=== PATIENT | female | born 1965 | race Caucasian/White ===

== ENCOUNTER 2019-07-12 21:55 | Emergency (ER) | payer MEDICARE, SELFPAY ==
--- NOTE | ~2019-07-12 | XR_ITS ---
XR knee RT 2V 07/12/2019 22:24 INDICATION: Right knee pain PROCEDURE: 2 views right knee COMPARISON: No prior studies for comparison. FINDINGS: Fracture, dislocation or subluxation is not identified. No significant joint effusion. The soft tissues appear within normal limits. No foreign bodies are identified. Small sclerotic lesion d istal femoral metaphysis, likely bone island. IMPRESSION: 1: NO ACUTE BONE OR JOINT ABNORMALITY IDENTIFIED. Reviewed, dictated and finalized at location A.
--- NOTE | ~2019-07-12 | XR_ITS ---
XR hip RT 2V w AP pelvis 07/12/2019 22:24 INDICATION: Leg pain PROCEDURE: 3 views right hip including AP pelvis COMPARISON: No prior studies for comparison. FINDINGS: Fracture, dislocation or subluxation is not identified. The soft tissues appear within norm al limits. No foreign bodies are identified. IMPRESSION: 1: NO ACUTE BONE OR JOINT ABNORMALITY IDENTIFIED. Reviewed, dictated and finalized at location A.
[2019-07-12 21:59] VITALS: BP 151/85; PULSE 90; RESP 16; TEMP 36.8; O2SAT 97
--- NOTE | 2019-07-12 22:03 | ED.LOWEXIN ---
HPI - Extremity Injury (Lower) General Chief Complaint: Extremity Injury, Lower Stated Complaint: ambulance Source: patient and EMS Mode of arrival: EMS Limitations: no limitations History of Present Illness HPI Narrative: This is a 53-year-old female that presents via EMS to the emergency department after she fell when she tripped outdoors and falling directly on her on her knee causing pain swelling and radiation into her right hip area occurred earlier today. There is no fever chills no dizziness no nausea vomiting no headaches no chest pain or shortness of breath. Patient has decreased range of motion with pain with palpation and movement of her right knee and hip area there is some mild swelling and is having difficulty with extending and flexing her right knee. Patient has a history of hyperlipidemia and depression. MD complaint: knee injury and leg injury Onset (ago): hour(s) Injury: Right: hip and knee Type of Injury: blunt Place: home and street/outdoors Severity: moderate Severity scale (1-10): 6 Relieving factors: nothing Exacerbating factors: weight bearing and movement Context: fall and direct blow Associated symptoms: swelling and unable to bear weight Other symptoms: none Related Data Home Medications Medication Instructions Recorded Confirmed aspirin 81 mg PO DAILY 01/07/19 07/12/19 atorvastatin 20 mg PO HS 01/07/19 07/12/19 ergocalciferol (vitamin D2) 50,000 unit PO WEEKLY 01/07/19 07/12/19 [Vitamin D2] omega 7-[id number]-jwh-fish oil [Fish Oil] 1 cap PO DAILY 01/07/19 07/12/19 sertraline 100 mg PO DAILY 01/07/19 07/12/19 sumatriptan succinate [Imitrex] 50 mg PO ONCE 01/07/19 07/12/19 Allergies Allergy/AdvReac Type Severity Reaction Status Date / Time No Known Allergies Allergy Verified 01/28/19 17:15 Review of Systems Review of Systems: All systems reviewed & are unremarkable except as noted in HPI and below Constitutional: Constitutional: Reports as per HPI PMFSH Past Medical History Medical History Hyperlipidemia Migraine headache Social History Social History Social History: nonsmoker Exam Const: General: no acute distress and alert Orientation/consciousness: patient oriented x3 HENMT: Head: normal to inspection Eyes: Conjunctivae: conjunctivae normal Pupils: Equal, round and reactive pupils present Neck: Neck: normal visual inspection, no lymphadenopathy and no meningeal signs Chest: Chest palpation & inspection: normal inspection of the chest Resp: Effort & Inspection: normal respiratory effort Auscultation: clear to auscultation bilaterally Cardio: Rate: regular rate Rhythm: regular rhythm GI: GI Palp: Yes Soft to palpation Percussion: Yes normal to percussion : General: Yes no CVA tenderness Back/Spine/Pelvis: Back: no CVA tenderness Skin: General skin exam: normal color Rashes: no rashes Extrem: Other: Point tenderness anterior knee on the right with some decreased range of motion with some flexing and extending the right knee radiation into her right hip area with swelling of her right knee Psych: Mental Status: mental status grossly normal Thought content: Yes Normal thought content present Course Course Emergency Course: reassessment of patient a pain level down to a 7/10, patient initially given IM Toradol, and subsequently a 2nd injection of IM morphine 4 mg. Spoke to patient about negative results for fractures on x-rays of the hip and the knee. Critical Care Time Critical Care Time Critical Care Time: No Discharge Plan Discharge Clinical Impression: Knee strain Qualifiers: Encounter type: initial encounter Laterality: right Qualified Code(s): S86.911A - Strain of unspecified muscle(s) and tendon(s) at lower leg level, right leg, initial encounter Patient Disposition: Home, Self-Care Condition: Stable Instructions:
[2019-07-12] MEDS: KETOROLAC (*BKC) 60 MG/2 ML VIAL IM (22:06)
[2019-07-12 22:52] VITALS: BP 138/76; PULSE 75; RESP 20; O2SAT 97
[2019-07-12] MEDS: MORPHINE SULFATE 4 MG/ML INJ IM (23:05)
[2019-07-12 23:41] VITALS: BP 138/75; PULSE 75; RESP 20; TEMP 37.1; O2SAT 97
--- NOTE | 2019-07-12 23:52 | PC.NURSE ---
2348 pt assisted to car via wheelchair. instructions to wear stable shoes and no flip flops. pt attempting to hop around on one foot. unsafe.
== END 2019-07-12 23:42 | disposition home or self-care (01) ==
PROVIDERS: Emergency Provider Emergency Medicine; PCP Family Medicine
DX: S86.911A Strain of unspecified muscle(s) and tendon(s) at lower leg level, right leg, initial encounter (principal); W01.0XXA Fall on same level from slipping, tripping and stumbling without subsequent striking against object, initial encounter; E78.5 Hyperlipidemia, unspecified
CPT/HCPCS: 73502; 73560; 96372; 99283; 99284; J1885; J2270

== ENCOUNTER 2019-11-12 19:52 | Emergency (ER) | payer MEDICARE, SELFPAY ==
--- NOTE | ~2019-11-12 | CT_ITS ---
EXAMINATION: CT abdomen pelvis wo con DATE: 11/12/2019 21:18 INDICATION: Colicky left flank pain. TECHNIQUE: Computed tomography (CT) of the abdomen and pelvis was performed without intravenous contr ast. Automated exposure control and iterative reconstruction technique were employed. The dose-length product was 1504.77 mGy-cm. COMPARISON: None FINDINGS: Visualized lower lungs are clear. Heart size is normal. No pericardial or pleural effusion. Diffuse h epatic steatosis with focal sparing along the gallbladder fossa. Gallbladder, spleen, pancreas and bi lateral adrenal glands are normal. Bilateral nephrolithiasis with 3 stones measuring up to 6 mm in th e right kidney and 3 stones measuring up to 4 mm the left kidney. 5 x 2 mm stone at the left ureterov esicular junction with mild left hydronephrosis. Bowels including the appendix are normal. Decompress ed bladder, anteverted uterus and right adnexa are normal. 2.9 cm left adnexal cyst. Fat-containing u mbilical hernia. No free intraperitoneal gas or fluid. No pathologically enlarged abdominal or pelvic lymphadenopathy. Mild degenerative skeletal changes in the thoracic and lumbar spine, bilateral sacr oiliac and hip joints. IMPRESSION: 1. Bilateral nephrolithiasis with 5 x 2 mm stone at the left ureterovesicular junction with mild left hydronephrosis. 2. Diffuse hepatic steatosis. Reviewed, dictated and finalized at location A. IMPRESSION: 1. Bilateral nephrolithiasis with 5 x 2 mm stone at the left ureterovesicular j unction with mild left hydronephrosis. 2. Diffuse hepatic steatosis.
[2019-11-12 20:10] VITALS: BP 149/56; PULSE 71; RESP 22; TEMP 36.7; O2SAT 96
[2019-11-12 20:49] LABS: Basophils Absolute Auto 0.03 K/mm3 (0.00-0.10); Basophils Percent Auto 0.4 % (0.0-1.0); Eosinophils Absolute Auto 0.15 K/mm3 (0.02-0.50); Hematocrit 44.1 % (35.0-49.0); Hemoglobin 14.9 g/dL (12.0-15.0); Immature Granulocyte Absolute 0.03 K/mm3 (0.00-0.00); Immature Granulocyte Percent A 0.4 % (0.0-0.0); Lymphocytes Absolute Auto 1.24 K/mm3 (1.10-4.50); Lymphocytes Percent Auto 16.2 % (18.0-42.0); Mean Corpuscular HGB Conc 33.8 g/dL (32.0-36.0); Mean Corpuscular Hemoglobin 33.9 pg (27.0-31.0); Mean Corpuscular Volume 100.5 fL (78.0-102.0); Mean Platelet Volume 8.6 fl (9.2-11.8); Monocytes Absolute Auto 0.49 K/mm3 (0.10-0.90); Monocytes Percent Auto 6.4 % (2.0-11.0); Neutrophils Absolute Auto 5.7 K/mm3 (1.7-7.2); Neutrophils Percent Auto 74.6 % (50.0-70.0); Platelet Count Result 286 K/mm3 (150-420); Red Blood Count 4.39 M/mm3 (4.20-5.40); Red Cell Distribution Width 11.9 % (11.6-14.4); White Blood Count 7.7 K/mm3 (4.8-10.8)
[2019-11-12] MEDS: KETOROLAC 30 MG/ML VIAL (*BKC) IV PUSH (20:50)
[2019-11-12] MEDS: MORPHINE SULFATE (*CRX) 4 MG/ML INJ IV PUSH (20:53)
[2019-11-12 21:00] VITALS: BP 146/108; PULSE 71; RESP 14; O2SAT 99
[2019-11-12 21:02] LABS: Alanine Aminotransferase 38 U/L (14-59); Alkaline Phosphatase 118 U/L (46-116); Anion Gap 10 mmol/L (8-16); Aspartate Amino Transferase 18 U/L (15-37); Bilirubin,Total 0.4 mg/dL (0.00-1.00); Blood Urea Nitrogen 15 mg/dL (7-18); Calcium 9.1 mg/dL (8.5-10.1); Carbon Dioxide 28 mmol/L (21-32); Chloride 103 mmol/L (98-108); Estimated CRCL calculation 68 ml/min; Estimated Glomerular Filt Rate 49; Glucose 125 mg/dL (70-99); Lipase 128 U/L (73-393); Osmolality Calculated 293 mOsm/kg (285-295); Potassium 4.1 mmol/L (3.5-5.1); Sodium 141 mmol/L (136-145); Total Protein 8.4 g/dL (6.4-8.2)
[2019-11-12] MEDS: ONDANSETRON INJ 4 MG/2 ML VIAL IV PUSH (21:04)
--- NOTE | 2019-11-12 21:07 | ED.GENADULT ---
HPI - General Adult General Chief complaint: Back Pain/Injury Stated complaint: side pain/back pain Source: patient Mode of arrival: ambulatory Limitations: no limitations History of Present Illness HPI narrative: Love is a 54F with a PMH of anxiety, and headaches that presented to the ED with left flank pain. She started having dysuria and burning but this afternoon she started having severe colicky pain in her left flank. Pain is constant and associated with nausea and dry heaving. She has no chest pain, SOB, lightheadedness, or diarrhea. Ibuprofen did not provide adequate relief. Related Data Home Medications Medication Instructions Recorded Confirmed aspirin 81 mg PO DAILY 01/07/19 11/12/19 atorvastatin 20 mg PO HS 01/07/19 11/12/19 ergocalciferol (vitamin D2) 50,000 unit PO WEEKLY 01/07/19 11/12/19 [Vitamin D2] omega 7-wyl-mem-fish oil [Fish Oil] 1 cap PO DAILY 01/07/19 11/12/19 sertraline 100 mg PO DAILY 01/07/19 11/12/19 sumatriptan succinate [Imitrex] 50 mg PO ONCE 01/07/19 11/12/19 Allergies Allergy/AdvReac Type Severity Reaction Status Date / Time No Known Allergies Allergy Verified 01/28/19 17:15 Review of Systems Constitutional: Constitutional: Denies chills and Denies fever(s) Eyes: Eyes: Reports no additional eye complaints ENT: Reports system reviewed and no additional complaints, except as documented Cardiovascular: Cardiovascular: Reports no additional cardiovascular complaints Respiratory: Respiratory: Reports no additional respiratory complaints Gastrointestinal: Gastrointestinal: Reports nausea and Reports vomiting Genitourinary: Genitourinary: Reports as per HPI Musculoskeletal: Musculoskeletal: Reports no additional musculoskeletal complaints Integumentary/Breasts: Skin/Breast: Reports system reviewed and no additional complaints, except as docu Neurologic: Reports system reviewed and no additional complaints, except as documented Psychiatric: Psychiatric: Reports no additional psychiatric complaints Endocrine: Endocrine: Reports no additional endocrine complaints Hematologic/Lymphatic: Hematologic/Lymphatic: Reports no additional hematologic/lymphatic complaints Allergic/Immunologic: Allergic/Immunologic: Reports no additional allergic/immunologic complaints PMFSH Past Medical History Medical History Hyperlipidemia Migraine headache Social History Social History Social History: nonsmoker Exam Const: General: alert Orientation/consciousness: patient oriented x3 Other: in mild to moderate distress rocking back and fourth holding her side. HENMT: Head: normal to inspection Eyes: Conjunctivae: conjunctivae normal Pupils: Equal, round and reactive pupils present Neck: Neck: normal visual inspection Resp: Effort & Inspection: normal respiratory effort Auscultation: clear to auscultation bilaterally Cardio: Rate: regular rate Rhythm: regular rhythm GI: GI Palp: Yes Soft to palpation and No Tenderness to palpation present (GI) : Other: CVA tenderness on the left and suprapubic tenderness Skin: General skin exam: normal color Rashes: no rashes Neuro: General: patient oriented x3 and moves all extremities Extrem: General: normal to inspection Psych: Mental Status: mental status grossly normal Course Course Emergency Course: Love was evaluated. Ordered labs, a UA and CT abd/pelvis w/o contrast. She was also given toradol and morphine for the pain. Zofran was given for nausea. EXAMINATION: CT abdomen pelvis wo con DATE: 11/12/2019 21:18 INDICATION: Colicky left flank pain. TECHNIQUE: Computed tomography (CT) of the abdomen and pelvis was performed without intravenous contrast. Automated exposure control and iterative reconstruction technique were employed. The dose-length product was 1504.77 mGy-cm. COMPARISON: None FINDINGS: Visuali
[2019-11-12 21:45] VITALS: BP 158/94; PULSE 79; RESP 15; O2SAT 100
[2019-11-12 21:50] LABS: Add Urine Microscopic? YES; Appearance Urine Clear (Clear); Bilirubin Urine 1+ (Negative); Blood Urine 1+ (Negative); Color Urine Yellow (Yellow); Glucose Urine UA Negative (Negative); Ketones Urine Trace (Negative); Leukocyte Esterase Ur Negative (Negative); Nitrate Urine Negative (Negative); Protein Urine Negative (Negative); Specific Grav Ur >= 1.030 (1.010-1.020); Urobilinogen Urine 0.2 mg/dL (0.2-1.0); pH Urine 5.5 (5.0-8.0)
[2019-11-12 21:58] LABS: RBC Urine 0-2 /hpf (0-2); WBC Urine 0-3 /hpf (0-3)
[2019-11-12 21:59] LABS: Bacteria Urine 1+ /hpf; Calcium Oxalate Crystals Urine Many /hpf; Squamous Epithelial Cell Urine Moderate /hpf (Few)
[2019-11-12 22:11] VITALS: BP 145/90; PULSE 70; RESP 14; O2SAT 98
== END 2019-11-12 22:15 | disposition home or self-care (01) ==
PROVIDERS: Emergency Provider Family Medicine; PCP Family Medicine
DX: N20.1 Calculus of ureter (principal); K75.81 Nonalcoholic steatohepatitis (NASH)
CPT/HCPCS: 36415; 74176; 80053; 81001; 83690; 85025; 96374; 96375; 99284; J1885; J2270; J2405

== ENCOUNTER 2019-11-27 02:03 | Emergency (ER) | payer MEDICARE, SELFPAY ==
--- NOTE | ~2019-11-27 | CT_ITS ---
EXAMINATION: CT abdomen pelvis wo con DATE: 11/27/2019 02:42 INDICATION: Right flank pain. TECHNIQUE: Computed tomography (CT) of the abdomen and pelvis was performed without intravenous contr ast. Automated exposure control and iterative reconstruction technique were employed. The dose-length product was 1479.03 mGy-cm. COMPARISON: CT abdomen and pelvis 11/12/2019 FINDINGS: The visualized portions of the lung bases demonstrate minimal atelectasis. No pleural effus ion. The heart size is normal. No pericardial effusion. There is diffuse hepatic steatosis. The gallb ladder, spleen, pancreas, and adrenal glands are normal. There is a 3 mm stone in right kidney. There is a 3 mm stone in distal right ureter. There is moderate hydronephrosis and hydroureter. There are 4 stones in left kidney measuring up to 2 mm. There is an umbilical hernia containing fat. There are no dilated loops of bowel. The appendix is normal. There are no pathologically enlarged lymph nodes. There is no free intraperitoneal fluid. There is mild thoracolumbar spondylosis. IMPRESSION: 1. 3 mm stone in distal right ureter with mild right hydronephrosis and hydroureter. 2. Small bilateral nonobstructing kidney stones. 3. Umbilical hernia containing fat. Reviewed, dictated and finalized at location A. IMPRESSION: 1. 3 mm stone in distal right ureter with mild right hydronephrosis and hydrour eter. 2. Small bilateral nonobstructing kidney stones. 3. Umbilical hernia containing fat.
[2019-11-27 02:10] VITALS: BP 137/76; PULSE 80; RESP 20; TEMP 36.7; O2SAT 98
--- NOTE | 2019-11-27 02:21 | ED.GENADULT ---
HPI - General Adult General Chief complaint: Abdominal Pain Stated complaint: pain Source: patient Mode of arrival: ambulatory Limitations: no limitations History of Present Illness HPI narrative: Love is a 54F with a PMH of anxiety, headaches, HLD, a mood disorder and nephrolithiasis that presented to clinic with right flank pain that began a couple hours ago. She was sleeping when she was awoken by waxing and waning colicky pain in her RLQ that shoots into her groin. She was diagnosed with kidney stones bilaterally a couple weeks ago when she passed one. The pain is similar but on the other side. However, it is ten times worse. . No fevers, chills, CP, SOB, or syncope. She also had gross hematuria starting tonight. Related Data Home Medications Medication Instructions Recorded Confirmed atorvastatin 40 mg PO HS 01/07/19 11/27/19 sertraline 100 mg PO DAILY 01/07/19 11/27/19 sumatriptan succinate [Imitrex] 50 mg PO ONCE 01/07/19 11/27/19 Allergies Allergy/AdvReac Type Severity Reaction Status Date / Time No Known Allergies Allergy Verified 01/28/19 17:15 Review of Systems Constitutional: Constitutional: Reports no additional constitutional complaints Eyes: Eyes: Reports no additional eye complaints ENT: Reports system reviewed and no additional complaints, except as documented Cardiovascular: Cardiovascular: Reports no additional cardiovascular complaints Respiratory: Respiratory: Reports no additional respiratory complaints Gastrointestinal: Gastrointestinal: Denies diarrhea, Reports nausea and Denies vomiting Genitourinary: Genitourinary: Reports as per HPI Musculoskeletal: Musculoskeletal: Reports no additional musculoskeletal complaints Integumentary/Breasts: Skin/Breast: Reports system reviewed and no additional complaints, except as docu Neurologic: Reports system reviewed and no additional complaints, except as documented Psychiatric: Psychiatric: Reports no additional psychiatric complaints Endocrine: Endocrine: Reports no additional endocrine complaints Hematologic/Lymphatic: Hematologic/Lymphatic: Reports no additional hematologic/lymphatic complaints Allergic/Immunologic: Allergic/Immunologic: Reports no additional allergic/immunologic complaints [facility] Past Medical History Medical History (Updated 11/27/19 @ 03:07 by Jacob Causey DO) Hyperlipidemia Migraine headache Social History Social History Social History: nonsmoker Exam Const: General: alert; No confusion Orientation/consciousness: patient oriented x3 Limitations: No altered mental status Other: In mild to moderate distress breathing heavy lying on the bed. HENMT: Head: normal to inspection Other: atraumatic Eyes: Conjunctivae: conjunctivae normal Neck: Neck: normal visual inspection Chest: Chest palpation & inspection: normal inspection of the chest Resp: Effort & Inspection: normal respiratory effort Auscultation: clear to auscultation bilaterally Cardio: Rate: regular rate Rhythm: regular rhythm GI: GI Palp: Yes Soft to palpation Other: TTP in the RLQ. No guarding or rebound tenderness. Right sided CVA tenderness. : General: Yes CVA tenderness on the right Skin: General skin exam: normal color Neuro: General: patient oriented x3 and moves all extremities Extrem: General: normal to inspection Psych: Appearance: grossly normal Mental Status: mental status grossly normal Course Course Emergency Course: Love was evaluated. Ordered CT abd/pelvis, UA and labs as below. She was given toradol and morphine for pain as well as zofran for nausea. UA did show positive nitrites and bacteria but no leuk esterase or WBC. Given the nitrates and bacteria will treat with keflex. Urine culture ordered as well. CT read showed muliple bilateral non-obstructing renal calculi. These meaesure up to 3mm at the lower pole of the right kidney and
[2019-11-27] MEDS: KETOROLAC 30 MG/ML VIAL (*BKC) IV PUSH (02:25)
[2019-11-27] MEDS: MORPHINE SULFATE (*CRX) 4 MG/ML INJ IV PUSH (02:26)
[2019-11-27] MEDS: ONDANSETRON INJ 4 MG/2 ML VIAL IV PUSH (02:36)
[2019-11-27 02:47] LABS: Basophils Absolute Auto 0.04 K/mm3 (0.00-0.10); Basophils Percent Auto 0.4 % (0.0-1.0); Eosinophils Absolute Auto 0.16 K/mm3 (0.02-0.50); Eosinophils Percent Auto 1.8 % (1.0-6.0); Hematocrit 42.5 % (35.0-49.0); Hemoglobin 14.2 g/dL (12.0-15.0); Immature Granulocyte Absolute 0.04 K/mm3 (0.00-0.00); Immature Granulocyte Percent A 0.4 % (0.0-0.0); Lymphocytes Absolute Auto 1.97 K/mm3 (1.10-4.50); Mean Corpuscular HGB Conc 33.4 g/dL (32.0-36.0); Mean Corpuscular Hemoglobin 33.7 pg (27.0-31.0); Mean Platelet Volume 8.6 fl (9.2-11.8); Monocytes Absolute Auto 0.63 K/mm3 (0.10-0.90); Neutrophils Absolute Auto 6.1 K/mm3 (1.7-7.2); Neutrophils Percent Auto 68.4 % (50.0-70.0); Platelet Count Result 277 K/mm3 (150-420); Red Blood Count 4.21 M/mm3 (4.20-5.40); Red Cell Distribution Width 12.1 % (11.6-14.4)
[2019-11-27 02:49] LABS: Add Urine Microscopic? YES; Appearance Urine Cloudy (Clear); Bilirubin Urine 1+ (Negative); Blood Urine 3+ (Negative); Color Urine Amber (Yellow); Glucose Urine UA Negative (Negative); Ketones Urine Trace (Negative); Leukocyte Esterase Ur Negative (Negative); Nitrate Urine Positive (Negative); Protein Urine 2+ (Negative); Specific Grav Ur 1.025 (1.010-1.020); Urobilinogen Urine 0.2 mg/dL (0.2-1.0)
[2019-11-27 02:56] LABS: Bacteria Urine 2+ /hpf; RBC Urine >75 /hpf (0-2); Squamous Epithelial Cell Urine None seen /hpf (Few); WBC Urine 0-3 /hpf (0-3)
[2019-11-27 03:03] LABS: Alanine Aminotransferase 34 U/L (14-59); Albumin Level 3.5 g/dL (3.4-5.0); Alkaline Phosphatase 138 U/L (46-116); Anion Gap 8 mmol/L (8-16); Aspartate Amino Transferase 17 U/L (15-37); Bilirubin,Total 0.4 mg/dL (0.00-1.00); Blood Urea Nitrogen 23 mg/dL (7-18); Calcium 8.9 mg/dL (8.5-10.1); Carbon Dioxide 29 mmol/L (21-32); Chloride 104 mmol/L (98-108); Estimated CRCL calculation 93 ml/min; Estimated Glomerular Filt Rate > 60; Glucose 111 mg/dL (70-99); Lipase 150 U/L (73-393); Osmolality Calculated 296 mOsm/kg (285-295); Potassium 3.9 mmol/L (3.5-5.1); Sodium 141 mmol/L (136-145); Total Protein 7.7 g/dL (6.4-8.2)
[2019-11-27] MEDS: CEPHALEXIN 500 MG CAPSULE 1000 MG PO (03:10)
[2019-11-27 03:20] VITALS: BP 130/75; PULSE 85; RESP 20; TEMP 36.6; O2SAT 97
== END 2019-11-27 03:27 | disposition home or self-care (01) ==
PROVIDERS: Emergency Provider Family Medicine; PCP Family Medicine
DX: N20.1 Calculus of ureter (principal)
CPT/HCPCS: 36415; 74176; 80053; 81001; 83690; 85025; 87086; 96374; 96375; 99283; 99284; A9270; J1885; J2270; J2405

== ENCOUNTER 2020-10-27 17:52 | Emergency (ER) | payer MEDICARE, SELFPAY ==
[2020-10-27 19:24] VITALS: BP 125/75; PULSE 78; RESP 18; TEMP 37.1; O2SAT 96
--- NOTE | 2020-10-27 20:15 | ED.WOUNDLAC ---
HPI - Wound/Laceration General Chief Complaint: Wound/Laceration Stated Complaint: R upper leg pain, redness and warm to touch Time Seen by Provider: 10/27/20 18:55 Source: patient and RN notes reviewed Mode of arrival: ambulatory Limitations: no limitations History of Present Illness HPI narrative: right upper thigh insect bite redness, swelling and tenderness x 4 days. Onset (ago): day(s) (4) Extremity Location: Right: thigh Place: home Associated symptoms: pain Treatments prior to arrival: bandage Related Data Home Medications Medication Instructions Recorded Confirmed sertraline 100 mg PO DAILY 01/07/19 10/27/20 sumatriptan succinate [Imitrex] 50 mg PO ONCE 01/07/19 10/27/20 Allergies Allergy/AdvReac Type Severity Reaction Status Date / Time No Known Allergies Allergy Verified 01/28/19 17:15 Review of Systems Review of Systems: All systems reviewed & are unremarkable except as noted in HPI and below Musculoskeletal: Comments: upper right thigh redness and swollen insect bite. PMFSH Past Medical History Medical History Abscess Hyperlipidemia Migraine headache Social History Social History Social History: nonsmoker Exam Const: General: no acute distress Nutritional Appearance: obese Orientation/consciousness: patient oriented x3 HENMT: Head: normal to inspection Ears: external ears normal and TM's normal bilaterally General nose exam: Normal external nose present and Normal nares present Mouth: Yes moist mucous membranes Eyes: Conjunctivae: conjunctivae normal Pupils: Equal, round and reactive pupils present EOM: EOMs intact bilaterally Neck: Neck: normal visual inspection and no lymphadenopathy Chest: Chest palpation & inspection: normal inspection of the chest Resp: Effort & Inspection: normal respiratory effort Auscultation: clear to auscultation bilaterally Cardio: Rate: regular rate Rhythm: regular rhythm GI: GI Palp: Yes Soft to palpation (non-tender) Percussion: Yes normal to percussion Back/Spine/Pelvis: Back: no CVA tenderness Skin: General skin exam: normal color Other: mildly hyperemic 5cm x 4 cm flattened lesion with firm edge and soft middle. minimally tender Neuro: General: patient oriented x3, moves all extremities, no meningeal signs, no focal motor deficits and CN's II-XI intact bilaterally Extrem: Other: right anterior thigh abscess. Psych: Appearance: grossly normal and well kempt Mental Status: mental status grossly normal Affect: normal affect Attitude: cooperative Thought content: Yes Normal thought content present Course Course Emergency Course: Stable pt with less pain. for I and D and home with Rx. Reevaluation(s) Date: 10/27/20 Time: 20:19 Vital Signs Vital signs: Vital Signs Temperature 37.1 C 10/27/20 19:24 Pulse Rate 78 10/27/20 19:24 Respiratory Rate 18 10/27/20 19:24 Blood Pressure 125/75 10/27/20 19:24 Pulse Oximetry 96 10/27/20 19:24 Temperature 37.1 C 10/27/20 19:24 Pulse Rate 78 10/27/20 19:24 Respiratory Rate 18 10/27/20 19:24 Blood Pressure 125/75 10/27/20 19:24 Pulse Oximetry 96 10/27/20 19:24 Procedures Abscess I/D lower extremity: Date of Incision: 10/27/20 Time of Incision: 20:09 Side (if applicable): right Local Anesthetic: lidocaine 2% Amount of anesthesia used (mL): 4 Technique: incised with #11 blade Amount of fluid expressed (mL): 1 Irrigation: Yes Packing used?: iodoform I&D Results: Blood Complications: pain and bleeding Abcess I&D Additional Comments: Well tolerated. Critical Care Time Critical Care Time Critical Care Time: No Total Critical Care Time: 0 Discharge Plan Discharge Clinical Impression: Abscess Patient Disposition: Home, Self-Care Condition: Stable Instru
[2020-10-27] MEDS: KETOROLAC (*BKC) 60 MG/2 ML VIAL IM (20:16)
[2020-10-27] MEDS: cefTRIAXone 1 GM VIAL IM (20:18)
[2020-10-27] MEDS: LIDOCAINE HCL 1% LOCAL INJ 20 ML VIAL (20:19)
[2020-10-27] MEDS: LIDOCAINE HCL 2% PF INJ 5 ML VIAL 3 ML INFILTRATE (20:40)
[2020-10-27 21:06] VITALS: BP 130/74; PULSE 87; RESP 18; TEMP 36.4; O2SAT 97
== END 2020-10-27 21:07 | disposition home or self-care (01) ==
PROVIDERS: Emergency Provider Emergency Medicine; PCP Family Medicine
DX: L02.415 Cutaneous abscess of right lower limb (principal)
CPT/HCPCS: 10061; 87070; 87075; 87205; 96372; 99283; 99284; J0696; J1885

== ENCOUNTER 2020-10-30 22:01 | Emergency (ER) | payer MEDICARE, SELFPAY ==
--- NOTE | ~2020-10-30 | XR_ITS ---
EXAMINATION: XR knee LT 2V INDICATION: Left knee pain after fall TECHNIQUE: Two views of the left knee are obtained. COMPARISON: None available FINDINGS: There is no fracture. There is advanced joint space narrowing in the medial compartment. Th ere is soft tissue swelling of the knee. No joint effusion is identified. IMPRESSION: 1. No acute osseous abnormality. Reviewed, dictated and finalized at location A.
--- NOTE | ~2020-10-30 | XR_ITS ---
EXAMINATION: XR elbow LT 2V INDICATION: Left elbow pain TECHNIQUE: Two views of the left elbow were obtained. COMPARISON: None available FINDINGS: There is no fracture, dislocation, or subluxation. The bones, soft tissues, and joint space s are normal. IMPRESSION: 1. No acute osseous abnormality. Reviewed, dictated and finalized at location A.
[2020-10-30 22:08] VITALS: BP 109/65; PULSE 72; RESP 20; TEMP 36.6; O2SAT 95
--- NOTE | 2020-10-30 22:16 | ED.FALL ---
HPI - Fall General Chief Complaint: Fall Stated Complaint: fell in driveway Source: patient and EMS Mode of arrival: EMS Limitations: no limitations History of Present Illness HPI Narrative: this is a 55-year-old female that slipped and fell injuring her left elbow and left knee that occurred earlier today the patient was brought in by EMS has a history of depression, otherwise no head injury no loss of consciousness no other acute injuries. complaint: fall Onset (ago): hour(s) Fall from: standing Fall witnessed: yes, by family Place fall occurred: home Loss of consciousness: none Prolonged down time: no Symptoms prior to fall: none Context: tripped/slipped Related Data Home Medications Medication Instructions Recorded Confirmed sertraline 100 mg PO DAILY 01/07/19 10/27/20 sumatriptan succinate [Imitrex] 50 mg PO ONCE 01/07/19 10/27/20 Allergies Allergy/AdvReac Type Severity Reaction Status Date / Time No Known Allergies Allergy Verified 10/30/20 22:13 Review of Systems Review of Systems: All systems reviewed & are unremarkable except as noted in HPI and below PMFSH Past Medical History Medical History Abscess Hyperlipidemia Migraine headache Social History Social History Social History: nonsmoker Exam Const: General: no acute distress Orientation/consciousness: patient oriented x3 HENMT: Head: normal to inspection Eyes: Conjunctivae: conjunctivae normal Pupils: Equal, round and reactive pupils present Neck: Neck: normal visual inspection, no lymphadenopathy and no meningeal signs Chest: Chest palpation & inspection: normal inspection of the chest Resp: Effort & Inspection: normal respiratory effort Auscultation: clear to auscultation bilaterally Cardio: Rate: regular rate Rhythm: regular rhythm GI: Auscultation: normal bowel sounds : General: Yes no CVA tenderness Back/Spine/Pelvis: Back: no CVA tenderness Skin: Other: Abrasion to anterior left knee and elbow Neuro: General: patient oriented x3 Extrem: Other: pain of sedated with movement to left elbow and left knee and with palpation Psych: Mental Status: mental status grossly normal Affect: normal affect Course Course Emergency Course: x-rays reviewed with patient Vital Signs Vital signs: Vital Signs Temperature 36.6 C 10/30/20 22:08 Pulse Rate 72 10/30/20 22:08 Respiratory Rate 20 10/30/20 22:08 Blood Pressure 109/65 10/30/20 22:08 Pulse Oximetry 95 10/30/20 22:08 Temperature 36.6 C 10/30/20 22:08 Pulse Rate 72 10/30/20 22:08 Respiratory Rate 20 10/30/20 22:08 Blood Pressure 109/65 10/30/20 22:08 Pulse Oximetry 95 10/30/20 22:08 Critical Care Time Critical Care Time Critical Care Time: No Discharge Plan Discharge Clinical Impression: Knee strain Qualifiers: Encounter type: initial encounter Laterality: unspecified laterality Qualified Code(s): S86.919A - Strain of unspecified muscle(s) and tendon(s) at lower leg level, unspecified leg, initial encounter Elbow strain Qualifiers: Encounter type: initial encounter Laterality: left Qualified Code(s): S46.912A - Strain of unspecified muscle, fascia and tendon at shoulder and upper arm level, left arm, initial encounter Patient Disposition: Home, Self-Care Condition: Stable Instructions: Antibiotic Form, Muscle Strain (ED) Additional Instructions: Can take Tylenol or Motrin for pain and inflammation and follow with primary care physician within a week further evaluation treatment. Prescriptions: No Action sertraline 100 mg tablet 50 mg PO DAILY RF: 0 sumatriptan succinate [Imitrex] 50 mg Tablet 50 mg PO ONCE RF: 0 sulfamethoxazole-trimethoprim [Bactrim DS] 800-160 mg tablet 1 tablet PO Q12H Qty: 20 RF: 0 ibuprofen 800 mg tablet 800 mg PO TID Qty: 20 RF: 0
[2020-10-30] MEDS: KETOROLAC (*BKC) 60 MG/2 ML VIAL IM (22:21)
[2020-10-30 23:01] VITALS: BP 142/74; PULSE 62; RESP 20; TEMP 37.1; O2SAT 96
[2020-10-31 01:12] VITALS: BP 129/72; PULSE 59; RESP 20; TEMP 36.6; O2SAT 100
== END 2020-10-31 01:17 | disposition home or self-care (01) ==
PROVIDERS: Emergency Provider Emergency Medicine; PCP Family Medicine
DX: S86.919A Strain of unspecified muscle(s) and tendon(s) at lower leg level, unspecified leg, initial encounter (principal); S46.912A Strain of unspecified muscle, fascia and tendon at shoulder and upper arm level, left arm, initial encounter; W01.0XXA Fall on same level from slipping, tripping and stumbling without subsequent striking against object, initial encounter; E78.5 Hyperlipidemia, unspecified
CPT/HCPCS: 73070; 73560; 96372; 99283; 99284; J1885

== ENCOUNTER 2020-11-19 13:23 | Emergency (ER) | payer MEDICARE, SELFPAY ==
--- NOTE | ~2020-11-19 | CT_ITS ---
EXAMINATION: CT abdomen pelvis wo con DATE: 11/19/2020 14:41 INDICATION: Left-sided abdominal pain and nausea TECHNIQUE: Computed tomography (CT) of the abdomen and pelvis was performed without intravenous contr ast. Automated exposure control and iterative reconstruction technique were employed. The dose-length product was 1515.95 mGy-cm. COMPARISON: 11/27/2019 FINDINGS: Minimal dependent atelectasis in the bilateral lower lobes. Heart size is normal. No pericardial or p leural effusion. Diffuse hepatic steatosis. Gallbladder, spleen, pancreas and bilateral adrenal gland s are normal. Bilateral nephrolithiasis including 5 stones in the right kidney the largest at the low er pole calyx measuring 8 mm and 5 stones in the left kidney measuring up to 5 mm a lower pole calyx. There is a 3-4 mm stone in the distal left ureter with minimal left hydroureteronephrosis. Anteverte d uterus, decompressed bladder and right adnexa is unremarkable. 2.5 cm left ovarian cyst/follicle. B owels including the appendix are normal. No free intraperitoneal gas or fluid. No pathologically enla rged abdominal or pelvic lymphadenopathy. 6.7 x 4.0 x 5.5 cm fat-containing umbilical hernia with 1.0 x 1.5 cm orifice. Mild scattered degenerative skeletal changes. IMPRESSION: 1. Bilateral nephrolithiasis with 3-4 mm distal left ureteral stone with minimal left hydroureteronep hrosis. 2. Diffuse hepatic steatosis. Reviewed, dictated and finalized at location [facility]. IMPRESSION: 1. Bilateral nephrolithiasis with 3-4 mm distal left ureteral stone with minima l left hydroureteronephrosis. 2. Diffuse hepatic steatosis.
[2020-11-19 13:48] VITALS: BP 122/66; PULSE 72; RESP 18; TEMP 36.6; O2SAT 96
--- NOTE | 2020-11-19 14:24 | ED.ABDPAIN ---
HPI - Abdominal Pain General Chief Complaint: Abdominal Pain Stated Complaint: lt side stomach pain Time Seen by Provider: 11/19/20 13:26 Source: patient and RN notes reviewed Mode of arrival: ambulatory Limitations: no limitations History of Present Illness MD elicited complaint: flank pain Pertinent past history: kidney stones Onset (ago): hour(s) (4) Pain Consistency: constant Location: L flank Severity: mild Pain scale (0-10): 8 Quality: cramping and aching Radiation: L flank Associated symptoms: nausea Related Data Home Medications Medication Instructions Recorded Confirmed sertraline 50 mg PO DAILY 01/07/19 11/19/20 sumatriptan succinate [Imitrex] 50 mg PO ONCE 01/07/19 11/19/20 tamsulosin 0.4 mg PO DAILY 11/19/20 11/19/20 Allergies Allergy/AdvReac Type Severity Reaction Status Date / Time No Known Allergies Allergy Verified 11/19/20 13:46 Review of Systems Review of Systems: All systems reviewed & are unremarkable except as noted in HPI and below PMFSH Past Medical History Medical History Abscess Calculus of kidney Hyperlipidemia Migraine headache Social History Social History Social History: nonsmoker Exam Const: General: no acute distress and alert Nutritional Appearance: obese Orientation/consciousness: patient oriented x3 HENMT: Head: normal to inspection Ears: external ears normal and TM's normal bilaterally General nose exam: Normal external nose present and Normal nares present Mouth: Yes moist mucous membranes Eyes: Conjunctivae: conjunctivae normal Pupils: Equal, round and reactive pupils present EOM: EOMs intact bilaterally Neck: Neck: normal visual inspection and no lymphadenopathy Chest: Chest palpation & inspection: normal inspection of the chest Resp: Effort & Inspection: normal respiratory effort Auscultation: clear to auscultation bilaterally Cardio: Rate: regular rate Rhythm: regular rhythm GI: GI Palp: Yes Soft to palpation and Yes Tenderness to palpation present (GI) (mildly tender left flank and left CVA) : General: Yes bladder normal to palpation and Yes CVA tenderness Back/Spine/Pelvis: Back: CVA tenderness Skin: General skin exam: normal color Rashes: no rashes Neuro: General: patient oriented x3, moves all extremities, no meningeal signs, no focal motor deficits and CN's II-XI intact bilaterally Extrem: General: normal to inspection Psych: Appearance: grossly normal and well kempt Mental Status: mental status grossly normal Affect: normal affect Attitude: cooperative Thought content: Yes Normal thought content present Course Course Emergency Course: Pt was less painful and remained stable in the ED. Reevaluation(s) Reevaluation #1: less left flank pain Date: 11/19/20 Time: 14:31 Vital Signs Vital signs: Vital Signs Temperature 36.6 C 11/19/20 13:48 Pulse Rate 72 11/19/20 13:48 Respiratory Rate 18 11/19/20 13:48 Blood Pressure 122/66 11/19/20 13:48 Pulse Oximetry 96 11/19/20 13:48 Temperature 36.9 C 11/19/20 16:29 Pulse Rate 63 11/19/20 16:29 Respiratory Rate 20 11/19/20 16:29 Blood Pressure 108/63 11/19/20 16:29 Pulse Oximetry 98 11/19/20 16:29 MDM - Abdominal Pain Differential Diagnosis Differential diagnosis: Likely calculus of kidney, diverticulitis and small bowel obstruction Medical Records Attestation: I reviewed the patient's medical records. Lab Data Attestation: I reviewed the patient's lab results. Result diagrams: 11/19/20 14:52 11/19/20 14:52 Labs: Lab Results 11/19/20 11/19/20 11/19/20 Range/Units 14:20 14:52 14:52 WBC 9.4 (4.8-10.8) K/mm3 RBC 4.29 (4.20-5.40) M/mm3 Hgb 14.7 (12.0-15.0) g/dL Hct 43.8 (35.0-49.0) % MCV 102.1 H (78.0-102.0) fL MCH 34.3 H (27.0-31.0) pg MCHC 33.6 (32.0-36.0)
[2020-11-19 14:56] LABS: Basophils Absolute Auto 0.04 K/mm3 (0.00-0.10); Basophils Percent Auto 0.4 % (0.0-1.0); Eosinophils Absolute Auto 0.08 K/mm3 (0.02-0.50); Eosinophils Percent Auto 0.9 % (1.0-6.0); Hematocrit 43.8 % (35.0-49.0); Hemoglobin 14.7 g/dL (12.0-15.0); Immature Granulocyte Absolute 0.06 K/mm3 (0.00-0.00); Immature Granulocyte Percent A 0.6 % (0.0-0.0); Lymphocytes Absolute Auto 1.33 K/mm3 (1.10-4.50); Lymphocytes Percent Auto 14.2 % (18.0-42.0); Mean Corpuscular HGB Conc 33.6 g/dL (32.0-36.0); Mean Corpuscular Hemoglobin 34.3 pg (27.0-31.0); Mean Corpuscular Volume 102.1 fL (78.0-102.0); Mean Platelet Volume 8.4 fl (9.2-11.8); Monocytes Absolute Auto 0.53 K/mm3 (0.10-0.90); Monocytes Percent Auto 5.7 % (2.0-11.0); Neutrophils Absolute Auto 7.3 K/mm3 (1.7-7.2); Neutrophils Percent Auto 78.2 % (50.0-70.0); Platelet Count Result 263 K/mm3 (150-420); Red Blood Count 4.29 M/mm3 (4.20-5.40); Red Cell Distribution Width 12.2 % (11.6-14.4); White Blood Count 9.4 K/mm3 (4.8-10.8)
[2020-11-19] MEDS: SODIUM CHLORIDE 0.9% IV 500 ML 999 ML IV CONT (14:56)
[2020-11-19] MEDS: ONDANSETRON INJ 4 MG/2 ML VIAL IV PUSH (14:57)
[2020-11-19] MEDS: KETOROLAC (*BKC) 60 MG/2 ML VIAL IM (14:58)
[2020-11-19 15:09] LABS: Add Urine Microscopic? YES; Appearance Urine Cloudy (Clear); Bilirubin Urine Negative (Negative); Blood Urine 3+ (Negative); Color Urine Brown (Yellow); Glucose Urine UA Negative (Negative); Ketones Urine Trace (Negative); Leukocyte Esterase Ur Negative (Negative); Nitrate Urine Negative (Negative); Protein Urine 2+ (Negative); Specific Grav Ur >= 1.030 (1.010-1.020); Urobilinogen Urine 0.2 mg/dL (0.2-1.0)
[2020-11-19 15:11] LABS: Alanine Aminotransferase 35 U/L (14-59); Albumin Level 3.8 g/dL (3.4-5.0); Alkaline Phosphatase 90 U/L (46-116); Anion Gap 10 mmol/L (8-16); Aspartate Amino Transferase 18 U/L (15-37); Bilirubin,Total 0.3 mg/dL (0.00-1.00); Blood Urea Nitrogen 17 mg/dL (7-18); Calcium 9.3 mg/dL (8.5-10.1); Carbon Dioxide 28 mmol/L (21-32); Chloride 102 mmol/L (98-108); Estimated CRCL calculation 96 ml/min; Estimated Glomerular Filt Rate > 60; Glucose 134 mg/dL (70-99); Osmolality Calculated 293 mOsm/kg (285-295); Sodium 140 mmol/L (136-145); Total Protein 7.8 g/dL (6.4-8.2)
[2020-11-19 15:12] LABS: Calcium Oxalate Crystals Urine Present /hpf; RBC Urine 51-75 /hpf (0-2); Squamous Epithelial Cell Urine Few /hpf (Few); WBC Urine None seen /hpf (0-3)
[2020-11-19 15:13] LABS: Bacteria Urine 1+ /hpf
--- NOTE | 2020-11-19 15:19 | PC.NURSE ---
pt resting per cot. iv fluids continue to infuse without difficulty
[2020-11-19] MEDS: MORPHINE SULFATE (*CRX) 2 MG/ML INJ IV PUSH (16:15)
[2020-11-19] MEDS: cefTRIAXone 1 GM VIAL IM (16:15)
[2020-11-19 16:29] VITALS: BP 108/63; PULSE 63; RESP 20; TEMP 36.9; O2SAT 98
--- NOTE | 2020-11-19 16:30 | PC.NURSE ---
pt has strainer for urine at home from previous visit
--- NOTE | 2020-11-19 16:39 | PC.NURSE ---
pt departed with daughter to drive her home
== END 2020-11-19 16:39 | disposition home or self-care (01) ==
PROVIDERS: Emergency Provider Emergency Medicine; PCP Family Medicine
DX: N20.0 Calculus of kidney (principal); E78.5 Hyperlipidemia, unspecified
CPT/HCPCS: 36415; 74176; 80053; 81001; 85025; 96361; 96372; 96374; 96375; 99283; 99284; J0696; J1885; J2270; J2405; J7040

== ENCOUNTER 2021-02-16 17:47 | Emergency (ER) | payer MEDICARE, SELFPAY ==
--- NOTE | ~2021-02-16 | CT_ITS ---
EXAMINATION: CT diagnostic chest wo con EXAM DATE: 02/16/2021 18:42 INDICATION: Central chest pain with SOB and weakness x today. TECHNIQUE: Spiral CT of the chest without contrast. Axial, coronal and sagittal images of the chest were reviewed. Coronal maximum intensity pixel images of chest reviewed. The dose-length product ( DLP) for this examination was 1009.72 mGy-cm. The exposure was tailored according to patient size (a uto mA exposure control), and iterative reconstruction (ASIR) was used as additional dose reduction t echnique. There is no prior study for comparison. FINDINGS: Bibasilar subsegmental atelectasis. No evidence of pneumonia. Small pericardial effusion, no pleural effusions. Tracheobronchial tree is patent. There is no mediastinal, hilar or axillary lymphadenopathy. There is no pneumothorax. There is cardiomegaly. No evidence of coronary arter ial calcification. Upper abdomen is unremarkable. There is mild thoracic spondylosis without osteo blastic or osteolytic lesions identified. IMPRESSION: 1. Scattered bilateral subsegmental atelectasis. 2. Cardiomegaly. Trace pericardial effusion. Reviewed, dictated and finalized at location [facility]. N WASHER
[2021-02-16 17:47] VITALS: BP 137/72; PULSE 92; RESP 20; TEMP 36.6; O2SAT 97
--- NOTE | 2021-02-16 17:50 | ECG_ITS ---
Measurements Intervals [place] Rate: 88 P: 46 NH: 163 QRS: -41 QRSD: 90 T: -27 QT: 330 QTc: 400 Interpretive Statements SINUS RHYTHM LEFT AXIS DEVIATION LOW QRS VOLTAGE IN PRECORDIAL LEADS BORDERLINE R WAVE PROGRESSION, ANTERIOR LEADS BORDERLINE ST-T WAVE ABNORMALITY- ANTEROLAT/INF LEADS BASELINE ARTIFACT- I, II, III, AVR, AVL, AVF, V1-V6 BORDERLINE ECG Electronically Signed On 02-16-2021 20:14:27 [employer] by Robe Da Silva D.O.
[2021-02-16 18:15] VITALS: PULSE 91
[2021-02-16 18:30] LABS: Base Excess ABG -0.4 mmol/L (0-2); HCO3 ABG 23.8 mmol/L (23-29); Oxygen Content ABG 20.3 %vol (16.0-22.0); Oxygen Saturation ABG 93.3 % (95-97); Oxyhemoglobin 92.3 % (94-100); PCO2 ABG 37.9 mmHg (35-45); PO2 ABG 65.4 mmHg (80-90); Total Hemoglobin 15.7 g/dL (12.0-18.0); pH ABG 7.42 (7.35-7.45)
[2021-02-16] MEDS: ASPIRIN 325 MG ENTERIC TABLET PO (18:31)
[2021-02-16] MEDS: KETOROLAC (*BKC) 60 MG/2 ML VIAL IM (18:31)
[2021-02-16 18:32] LABS: Basophils Absolute Auto 0.04 K/mm3 (0.00-0.10); Basophils Percent Auto 0.3 % (0.0-1.0); Eosinophils Absolute Auto 0.16 K/mm3 (0.02-0.50); Eosinophils Percent Auto 1.3 % (1.0-6.0); Hematocrit 46.5 % (35.0-49.0); Hemoglobin 15.7 g/dL (12.0-15.0); Immature Granulocyte Absolute 0.03 K/mm3 (0.00-0.00); Immature Granulocyte Percent A 0.2 % (0.0-0.0); Lymphocytes Absolute Auto 1.58 K/mm3 (1.10-4.50); Lymphocytes Percent Auto 12.9 % (18.0-42.0); Mean Corpuscular HGB Conc 33.8 g/dL (32.0-36.0); Mean Corpuscular Hemoglobin 34.7 pg (27.0-31.0); Mean Corpuscular Volume 102.6 fL (78.0-102.0); Mean Platelet Volume 8.7 fl (9.2-11.8); Monocytes Absolute Auto 0.92 K/mm3 (0.10-0.90); Monocytes Percent Auto 7.5 % (2.0-11.0); Neutrophils Absolute Auto 9.5 K/mm3 (1.7-7.2); Neutrophils Percent Auto 77.8 % (50.0-70.0); Platelet Count Result 297 K/mm3 (150-420); Red Blood Count 4.53 M/mm3 (4.20-5.40); Red Cell Distribution Width 11.9 % (11.6-14.4); White Blood Count 12.2 K/mm3 (4.8-10.8)
[2021-02-16 18:56] VITALS: BP 156/87; PULSE 83; RESP 20; O2SAT 96
--- NOTE | 2021-02-16 19:07 | PC.NURSE ---
report to LAUREN Barker
[2021-02-16 19:11] LABS: SARS-CoV-2 RNA PCR Negative (Negative)
[2021-02-16 19:16] LABS: Alanine Aminotransferase 26 U/L (14-59); Albumin Level 3.7 g/dL (3.4-5.0); Alkaline Phosphatase 78 U/L (46-116); Anion Gap 10 mmol/L (8-16); Aspartate Amino Transferase 18 U/L (15-37); Bilirubin,Total 0.5 mg/dL (0.00-1.00); Blood Urea Nitrogen 15 mg/dL (7-18); Calcium 9.4 mg/dL (8.5-10.1); Carbon Dioxide 30 mmol/L (21-32); Chloride 101 mmol/L (98-108); Estimated CRCL calculation 101 ml/min; Estimated Glomerular Filt Rate > 60; Glucose 105 mg/dL (70-99); NT Pro B Type Natriuretic Pept 99 pg/mL (0-125); Osmolality Calculated 292 mOsm/kg (285-295); Potassium 4.1 mmol/L (3.5-5.1); Sodium 141 mmol/L (136-145); Total Protein 8.6 g/dL (6.4-8.2); Troponin I 4.7 ng/L (0.00-60.4)
[2021-02-16 19:17] LABS: Device NASAL CANNULA; Modified Allen's Test Pass; Site Drawn RIGHT RADIAL
[2021-02-16 19:44] LABS: Appearance Urine Clear (Clear); Bilirubin Urine Negative (Negative); Color Urine Yellow (Yellow); Glucose Urine UA Negative (Negative); Ketones Urine Negative (Negative); Leukocyte Esterase Ur Negative (Negative); Nitrate Urine Negative (Negative); Protein Urine Negative (Negative); Specific Grav Ur >= 1.030 (1.010-1.020); Urobilinogen Urine 0.2 mg/dL (0.2-1.0); pH Urine 5.5 (5.0-8.0)
--- NOTE | 2021-02-16 19:46 | ED.CHESTPAIN ---
HPI - Chest Pain General Chief Complaint: Chest Pain Stated Complaint: chest pain Time Seen by Provider: 02/16/21 17:50 Source: patient and RN notes reviewed Mode of arrival: ambulatory Limitations: no limitations History of Present Illness MD complaint: chest pain Pertinent past history: asthma Onset (ago): hour(s) (4) Timing of current episode: constant Prior episodes: Yes Onset: during rest Pain location: substernal Pain radiation: none Severity: moderate Pain scale (0-10): 8 Quality: aching and dull Relieving factors: nothing Exacerbating factors: nothing Associated symptoms: nausea Treatment prior to arrival: aspirin Risk Factors Coronary artery disease risk factors: hypertension Related Data On Oral Contraceptives: No Home Medications Medication Instructions Recorded Confirmed sertraline 100 mg PO DAILY 01/07/19 03/02/21 sumatriptan succinate [Imitrex] 50 mg PO ONCE PRN 01/07/19 03/02/21 omeprazole magnesium [Prilosec OTC] 40 mg PO BID 03/02/21 03/02/21 Allergies Allergy/AdvReac Type Severity Reaction Status Date / Time No Known Allergies Allergy Verified 11/19/20 13:46 Review of Systems Review of Systems: All systems reviewed & are unremarkable except as noted in HPI and below Cardiovascular: Cardiovascular: Reports chest pain PMFSH Past Medical History Medical History Abscess Calculus of kidney Chest pain Hyperlipidemia Migraine headache Morbid obesity Social History Social History Social History: nonsmoker Exam Const: General: no acute distress and alert Nutritional Appearance: obese Orientation/consciousness: patient oriented x3 Limitations: no limitations HENMT: Head: normal to inspection Ears: external ears normal and TM's normal bilaterally General nose exam: Normal external nose present and Normal nares present Mouth: Yes lip normal and Yes moist mucous membranes Eyes: Conjunctivae: conjunctivae normal Pupils: Equal, round and reactive pupils present EOM: EOMs intact bilaterally Neck: Neck: normal visual inspection Chest: Chest palpation & inspection: normal inspection of the chest Resp: Auscultation: crackles and rhonchi Cardio: Rate: regular rate Rhythm: regular rhythm GI: GI Palp: Yes Soft to palpation and No Tenderness to palpation present (GI) Auscultation: normal bowel sounds : General: Yes bladder normal to palpation and Yes no CVA tenderness Back/Spine/Pelvis: Back: no CVA tenderness Skin: General skin exam: normal color Neuro: General: patient oriented x3, moves all extremities, no meningeal signs, no focal motor deficits and CN's II-XI intact bilaterally Extrem: General: normal to inspection and no pedal edema Psych: Appearance: grossly normal Mental Status: mental status grossly normal Affect: Anxious affect present Attitude: cooperative Thought content: Yes Normal thought content present Course Course Emergency Course: less chest pain. Reevaluation(s) Reevaluation #1: VSS. Date: 02/16/21 Time: 18:46 Vital Signs Vital signs: Vital Signs Temperature 36.6 C 02/16/21 17:47 Pulse Rate 92 02/16/21 17:47 Respiratory Rate 20 02/16/21 17:47 Blood Pressure 137/72 02/16/21 17:47 Pulse Oximetry 97 02/16/21 17:47 Temperature 36.4 C L 02/16/21 20:10 Pulse Rate 83 02/16/21 20:10 Respiratory Rate 20 02/16/21 20:10 Blood Pressure 149/97 H 02/16/21 20:10 Pulse Oximetry 96 02/16/21 20:10 MDM - Chest Pain Differential Diagnosis Differential diagnosis: Likely stable angina, atypical chest pain, costochondritis and chest pain Medical Records Data Attestation: I reviewed the patient's medical records. Lab Data Attestation: I reviewed the patient's lab results. Result diagrams: 02/16/21 18:28 02/16/21 18:28 Labs: Lab Results 02/16/21 02/16/21 02/16/21 Range/Unit
[2021-02-16 19:50] LABS: Add Urine Microscopic? YES; Blood Urine Trace-Intact (Negative); RBC Urine 0-2 /hpf (0-2); WBC Urine 0-3 /hpf (0-3)
[2021-02-16 19:51] LABS: Bacteria Urine Trace /hpf; Mucus Urine Rare /lpf; Squamous Epithelial Cell Urine Rare /hpf (Few)
[2021-02-16] MEDS: ALBUTEROL SULFATE (*SP) INHALER 4 PUFF INHALATION (20:03)
[2021-02-16] MEDS: methylPREDNISolone SOD SUCC 125 MG VIAL IV PUSH (20:03)
[2021-02-16] MEDS: UMECLIDINIUM BROMIDE 62.5 MCG ELLIPTA 1 PUFF INHALATION (20:07)
[2021-02-16 20:10] VITALS: BP 149/97; PULSE 83; RESP 20; TEMP 36.4; O2SAT 96
== END 2021-02-16 20:19 | disposition home or self-care (01) ==
PROVIDERS: Emergency Provider Emergency Medicine; PCP Family Medicine
DX: R07.89 Other chest pain (principal); M94.0 Chondrocostal junction syndrome [Tietze]; J40 Bronchitis, not specified as acute or chronic; Z20.822 Contact with and (suspected) exposure to COVID-19; E78.5 Hyperlipidemia, unspecified
CPT/HCPCS: 36415; 36600; 71250; 80053; 81001; 82805; 83880; 84484; 85025; 93005; 96372; 96374; 99283; 99284; A9270; C9803; J1885; J2930; U0003; U0005

== ENCOUNTER 2021-03-02 12:54 | Emergency (ER) | payer MEDICARE, SELFPAY ==
[2021-03-02 13:15] VITALS: BP 110/59; PULSE 85; RESP 18; TEMP 36.6; O2SAT 97
--- NOTE | 2021-03-02 13:39 | ED.GENADULT ---
HPI - General Adult General Chief complaint: Recheck/Abnormal Lab/Rx Stated complaint: CHEST PAIN FOR 2 WEEKS Source: patient and RN notes reviewed Mode of arrival: ambulatory Limitations: no limitations History of Present Illness HPI narrative: Patient sent from doctor's office due to worsening dyspnea. She was seen at her primary care physician's office yesterday at which time lung exam was completely normal. Says that she has been having chest pain for 2 weeks. She had a CT scan of the chest done this morning which showed a small to moderate pleural effusion on the left with evidence of pneumonia. The doctor's office called her today and told her to come here for a thoracentesis. On arrival that is what she told registration that she was here for. She says that she is just feeling more short of breath. She was seen here 2 weeks ago for bronchitis and started on Zithromax and some steroids. At her visit yesterday she was started on another course of steroids. complaint: Sent by doctor's office Onset (ago): day(s) (1) Location: chest Radiation: non-radiation Severity: moderate Quality: aching Relieving factors: none Exacerbating factors: other (deep breaths) Associated symptoms: chest pain (sore from pneumonia) Related Data Home Medications Medication Instructions Recorded Confirmed sertraline 100 mg PO DAILY 01/07/19 03/02/21 sumatriptan succinate [Imitrex] 50 mg PO ONCE PRN 01/07/19 03/02/21 omeprazole magnesium [Prilosec OTC] 40 mg PO BID 03/02/21 03/02/21 Allergies Allergy/AdvReac Type Severity Reaction Status Date / Time No Known Allergies Allergy Verified 11/19/20 13:46 Review of Systems Review of Systems: All systems reviewed & are unremarkable except as noted in HPI and below Cardiovascular: Cardiovascular: Denies rapid heart rate and Denies radiating jaw, neck or arm pain Gastrointestinal: Gastrointestinal: Denies diarrhea, Denies nausea and Denies vomiting PMFSH Past Medical History Medical History (Updated 03/02/21 @ 15:13 by Jf Rodriguez MD) Abscess Calculus of kidney Hyperlipidemia Migraine headache Morbid obesity Social History Social History Social History: nonsmoker Exam Const: General: healthy appearing, no acute distress and alert Nutritional Appearance: well nourished and obese morbidly obese Orientation/consciousness: patient oriented x3 HENMT: Head: normal to inspection Ears: external ears normal Eyes: Conjunctivae: conjunctivae normal Pupils: Equal, round and reactive pupils present EOM: EOMs intact bilaterally Neck: Neck: normal visual inspection Resp: Effort & Inspection: normal respiratory effort Auscultation: clear to auscultation bilaterally and diminished lung sounds (mild short air exchange) Cardio: Rate: regular rate Rhythm: regular rhythm GI: GI Palp: Yes Soft to palpation and No Tenderness to palpation present (GI) Auscultation: normal bowel sounds Back/Spine/Pelvis: Cervical Spine: cervical ROM normal Thoracic/Lumbar Spine: thoraco-lumbar ROM normal Skin: General skin exam: normal color Rashes: no rashes Neuro: General: patient oriented x3, moves all extremities, no meningeal signs, no focal motor deficits and CN's II-XI intact bilaterally Speech: normal speech Gait exam (Neuro): Normal gait present Extrem: General: normal to inspection and no clubbing, cyanosis or edema Psych: Appearance: grossly normal and well kempt Mental Status: mental status grossly normal Affect: normal affect Attitude: cooperative Thought content: Yes Normal thought content present Course Vital Signs Vital signs: Vital Signs Temperature 36.6 C 03/02/21 13:15 Pulse Rate 85 03/02/21 13:15 Respiratory Rate 18 03/02/21 13:15 Blood Pressure 110/59 L 03/02/21 13:15 Pulse Oximetry 97 03/02/21 13:15 Temperature 36.6 C 03/02/21 15:28 Pulse Rate 78 03/02/21 15:28 Respiratory Rate
[2021-03-02 14:15] LABS: Basophils Absolute Auto 0.04 K/mm3 (0.00-0.10); Basophils Percent Auto 0.3 % (0.0-1.0); Eosinophils Absolute Auto 0.06 K/mm3 (0.02-0.50); Eosinophils Percent Auto 0.5 % (1.0-6.0); Hemoglobin 15.1 g/dL (12.0-15.0); Immature Granulocyte Absolute 0.09 K/mm3 (0.00-0.00); Immature Granulocyte Percent A 0.7 % (0.0-0.0); Lymphocytes Percent Auto 5.6 % (18.0-42.0); Mean Corpuscular HGB Conc 33.6 g/dL (32.0-36.0); Mean Corpuscular Hemoglobin 34.5 pg (27.0-31.0); Mean Corpuscular Volume 102.7 fL (78.0-102.0); Mean Platelet Volume 8.6 fl (9.2-11.8); Monocytes Absolute Auto 0.37 K/mm3 (0.10-0.90); Neutrophils Absolute Auto 11.3 K/mm3 (1.7-7.2); Neutrophils Percent Auto 89.9 % (50.0-70.0); Platelet Count Result 295 K/mm3 (150-420); Red Blood Count 4.38 M/mm3 (4.20-5.40); Red Cell Distribution Width 11.9 % (11.6-14.4); White Blood Count 12.5 K/mm3 (4.8-10.8)
[2021-03-02 14:31] LABS: Alanine Aminotransferase 26 U/L (14-59); Albumin Level 3.3 g/dL (3.4-5.0); Alkaline Phosphatase 72 U/L (46-116); Anion Gap 9 mmol/L (8-16); Aspartate Amino Transferase 16 U/L (15-37); Bilirubin,Total 0.7 mg/dL (0.00-1.00); Blood Urea Nitrogen 14 mg/dL (7-18); Calcium 9.7 mg/dL (8.5-10.1); Carbon Dioxide 29 mmol/L (21-32); Chloride 98 mmol/L (98-108); Estimated CRCL calculation 83 ml/min; Estimated Glomerular Filt Rate > 60; Glucose 123 mg/dL (70-99); Magnesium 2.2 mg/dL (1.8-2.4); Osmolality Calculated 283 mOsm/kg (285-295); Potassium 4.3 mmol/L (3.5-5.1); Sodium 136 mmol/L (136-145); Total Protein 8.6 g/dL (6.4-8.2)
[2021-03-02 14:36] LABS: Lactic Acid Reflex 1.1 mmol/L (0.4-2.0)
[2021-03-02] MEDS: methylPREDNISolone SOD SUCC 125 MG VIAL IM (15:21)
[2021-03-02] MEDS: cefTRIAXone 1 GM VIAL IM (15:21)
[2021-03-02 15:28] VITALS: BP 110/66; PULSE 78; RESP 20; TEMP 36.6; O2SAT 94
== END 2021-03-02 15:38 | disposition home or self-care (01) ==
PROVIDERS: Emergency Provider Emergency Medicine; PCP Family Medicine
DX: J18.9 Pneumonia, unspecified organism (principal); E78.5 Hyperlipidemia, unspecified
CPT/HCPCS: 36415; 80053; 83605; 83735; 85025; 96372; 99283; 99284; J0696; J2930

== ENCOUNTER 2021-03-13 12:23 | Emergency (ER) | payer MEDICARE, SELFPAY ==
--- NOTE | ~2021-03-13 | CT_ITS ---
EXAMINATION: CT diagnostic chest wo con DATE: 03/13/2021 14:33 INDICATION: Substernal chest wall pain TECHNIQUE: Computed tomography (CT) of the chest was performed without intravenous contrast. Automate d exposure control and iterative reconstruction technique were employed. Exam dose: 948.12 mGy-cm to steve exam DLP. COMPARISON: 03/13/2021 portable AP chest 02/16/2021 CTA chest FINDINGS: There is mild right basilar lower lobe and mild dependent lingular atelectasis. There is prominent left lower lobe basilar atelectasis/consolidation with air bronchograms. There is mild left pleural effusion. Normal heart size. There is mild diffuse pericardial thickening. Normal adrenal glands. Included skeletal structures are unremarkable. IMPRESSION: Left lower lobe atelectasis/consolidation and small left pleural effusion Mild right basilar lower lobe and dependent lingular atelectasis Reviewed, dictated and finalized at [facility]. Reviewed, dictated and finalized at location [facility]. ER REDRIER IMPRESSION: Left lower lobe atelectasis/consolidation and small left pleural e ffusion Mild right basilar lower lobe and dependent lingular atelectasis
--- NOTE | ~2021-03-13 | XR_ITS ---
EXAMINATION: XR chest 1V portable DATE: 03/13/2021 13:30 INDICATION: Central anterior chest pain. TECHNIQUE: A single frontal view of the chest was obtained. COMPARISON: Chest 2 views 01/07/2019, chest CT 02/16/2021 FINDINGS: There are airspace opacities at the lung bases. No pleural effusion or pneumothorax. The he art size is normal. IMPRESSION: 1. Airspace opacities at the lung bases, consistent with atelectasis versus pneumonia. Reviewed, dictated and finalized at location [facility]. MECHANIC IMPRESSION: 1. Airspace opacities at the lung bases, consistent with atelectasis versus pne umonia.
--- NOTE | 2021-03-13 12:34 | ECG_ITS ---
Measurements Intervals [place] Rate: 80 P: 11 CT: 152 QRS: -11 QRSD: 87 T: -69 QT: 331 QTc: 384 Interpretive Statements SINUS RHYTHM POOR R WAVE PROGRESSION, ANTERIOR LEADS BORDERLINE ST-T WAVE ABNORMALITY- DIFFUSE LEADS BASELINE ARTIFACT- I, II, III, AVR, AVL, AVF, V1-V2 BORDERLINE ECG Electronically Signed On 03-13-2021 16:28:57 NURSING EDUCATION SPECIALIST by Robe Da Silva D.O.
[2021-03-13 12:40] VITALS: BP 124/65; PULSE 78; RESP 20; TEMP 36.3; O2SAT 90
[2021-03-13] MEDS: ASPIRIN 325 MG ENTERIC TABLET PO (12:52)
[2021-03-13 13:18] LABS: Basophils Absolute Auto 0.04 K/mm3 (0.00-0.10); Basophils Percent Auto 0.4 % (0.0-1.0); Eosinophils Absolute Auto 0.21 K/mm3 (0.02-0.50); Eosinophils Percent Auto 2.2 % (1.0-6.0); Hematocrit 44.3 % (35.0-49.0); Hemoglobin 14.7 g/dL (12.0-15.0); Immature Granulocyte Absolute 0.05 K/mm3 (0.00-0.00); Immature Granulocyte Percent A 0.5 % (0.0-0.0); Lymphocytes Absolute Auto 1.46 K/mm3 (1.10-4.50); Lymphocytes Percent Auto 15.4 % (18.0-42.0); Mean Corpuscular HGB Conc 33.2 g/dL (32.0-36.0); Mean Corpuscular Hemoglobin 34.4 pg (27.0-31.0); Mean Corpuscular Volume 103.7 fL (78.0-102.0); Mean Platelet Volume 8.5 fl (9.2-11.8); Monocytes Absolute Auto 0.57 K/mm3 (0.10-0.90); Neutrophils Absolute Auto 7.2 K/mm3 (1.7-7.2); Neutrophils Percent Auto 75.5 % (50.0-70.0); Platelet Count Result 260 K/mm3 (150-420); Red Blood Count 4.27 M/mm3 (4.20-5.40); Red Cell Distribution Width 12.1 % (11.6-14.4); White Blood Count 9.5 K/mm3 (4.8-10.8)
[2021-03-13 13:44] LABS: Alanine Aminotransferase 23 U/L (14-59); Albumin Level 3.2 g/dL (3.4-5.0); Alkaline Phosphatase 68 U/L (46-116); Anion Gap 7 mmol/L (8-16); Aspartate Amino Transferase 11 U/L (15-37); Bilirubin,Total 0.6 mg/dL (0.00-1.00); Blood Urea Nitrogen 12 mg/dL (7-18); Carbon Dioxide 30 mmol/L (21-32); Chloride 102 mmol/L (98-108); Estimated Glomerular Filt Rate > 60; Glucose 105 mg/dL (70-99); Lactic Acid Reflex 1.2 mmol/L (0.4-2.0); NT Pro B Type Natriuretic Pept 60 pg/mL (0-125); Osmolality Calculated 287 mOsm/kg (285-295); Potassium 3.9 mmol/L (3.5-5.1); Sodium 139 mmol/L (136-145); Total Protein 7.6 g/dL (6.4-8.2)
[2021-03-13 14:01] LABS: Troponin I < 4.0 ng/L (0.00-60.4)
[2021-03-13] MEDS: KETOROLAC (*BKC) 60 MG/2 ML VIAL IM (14:44)
[2021-03-13 15:53] VITALS: BP 118/45; PULSE 70; RESP 18; O2SAT 93
--- NOTE | 2021-03-13 16:04 | ED.CHESTPAIN ---
HPI - Chest Pain General Chief Complaint: Chest Pain Stated Complaint: chest pain Time Seen by Provider: 03/13/21 12:25 Source: patient and RN notes reviewed Mode of arrival: ambulatory Limitations: no limitations History of Present Illness MD complaint: chest pain Pertinent past history: other (COPD and bronchitis) Onset (ago): day(s) (1) Timing of current episode: constant Prior episodes: Yes Onset: during rest and during exertion Pain location: substernal Pain radiation: none Severity: moderate Pain scale (0-10): 7 Quality: aching and dull Relieving factors: nothing Exacerbating factors: exertion and inspiration Context: recent illness Treatment prior to arrival: none Risk Factors Coronary artery disease risk factors: hypertension Related Data Home Medications Medication Instructions Recorded Confirmed sertraline 100 mg PO DAILY 01/07/19 03/02/21 sumatriptan succinate [Imitrex] 50 mg PO ONCE PRN 01/07/19 03/02/21 omeprazole magnesium [Prilosec OTC] 40 mg PO BID 03/02/21 03/02/21 Allergies Allergy/AdvReac Type Severity Reaction Status Date / Time No Known Allergies Allergy Verified 11/19/20 13:46 Review of Systems Review of Systems: All systems reviewed & are unremarkable except as noted in HPI and below Cardiovascular: Cardiovascular: Reports chest pain PMFSH Past Medical History Medical History Abscess Calculus of kidney Chest pain Hyperlipidemia Migraine headache Morbid obesity Social History Social History Social History: nonsmoker Exam Const: General: no acute distress and alert Nutritional Appearance: obese Orientation/consciousness: patient oriented x3 Limitations: no limitations HENMT: Head: normal to inspection Ears: external ears normal and TM's normal bilaterally General nose exam: Normal external nose present and Normal nares present Face and sinus: normal facial exam Mouth: Yes lip normal and Yes moist mucous membranes Throat: posterior oropharynx normal Eyes: Conjunctivae: conjunctivae normal Pupils: Equal, round and reactive pupils present EOM: EOMs intact bilaterally Neck: Neck: normal visual inspection Chest: Chest palpation & inspection: normal inspection of the chest and tenderness (minimal central and left lateral-posterior chest wall tenderness.) Resp: Effort & Inspection: normal respiratory effort Auscultation: rhonchi Cardio: Rate: regular rate Rhythm: regular rhythm GI: GI Palp: Yes Soft to palpation and No Tenderness to palpation present (GI) Auscultation: normal bowel sounds : General: Yes bladder normal to palpation and Yes no CVA tenderness Back/Spine/Pelvis: Back: no CVA tenderness Skin: General skin exam: normal color Rashes: no rashes Neuro: General: patient oriented x3, moves all extremities, no meningeal signs, no focal motor deficits and CN's II-XI intact bilaterally Extrem: General: normal to inspection and no pedal edema Psych: Appearance: grossly normal and well kempt Mental Status: mental status grossly normal Affect: normal affect Attitude: cooperative Thought content: Yes Normal thought content present Course Course Emergency Course: pt was stable and less pain-ful in the ED. Reevaluation(s) Reevaluation #1: VSS. pt was comfortable going home. Date: 03/13/21 Time: 13:21 Vital Signs Vital signs: Vital Signs Temperature 36.3 C L 03/13/21 12:40 Pulse Rate 78 03/13/21 12:40 Respiratory Rate 20 03/13/21 12:40 Blood Pressure 124/65 03/13/21 12:40 Pulse Oximetry 90 03/13/21 12:40 Temperature 36.3 C L 03/13/21 12:40 Pulse Rate 74 03/13/21 16:59 Respiratory Rate 18 03/13/21 16:59 Blood Pressure 112/63 03/13/21 16:59 Pulse Oximetry 95 03/13/21 16:59 MDM - Chest Pain Differential Diagnosis Differential diagnosis: Likely stable angina, atypical chest pain, costochondritis
[2021-03-13] MEDS: AZITHROMYCIN 250 MG TABLET 500 MG PO (16:18)
[2021-03-13 16:59] VITALS: BP 112/63; PULSE 74; RESP 18; O2SAT 95
== END 2021-03-13 17:00 | disposition home or self-care (01) ==
PROVIDERS: Emergency Provider Emergency Medicine; PCP Family Medicine
DX: R07.89 Other chest pain (principal); J40 Bronchitis, not specified as acute or chronic; R09.1 Pleurisy; E78.5 Hyperlipidemia, unspecified
CPT/HCPCS: 36415; 71045; 71250; 80053; 83605; 83880; 84484; 85025; 93005; 96365; 96372; 99283; 99284; A9270; J0696; J1885

== ENCOUNTER 2021-03-31 08:48 | Outpatient (CLI) | payer MEDICARE, SELFPAY ==
--- NOTE | ~2021-03-31 | US_ITS ---
EXAMINATION: US abdomen complete DATE: 03/31/2021 09:41 INDICATION: Abdominal pain TECHNIQUE: Multiple grayscale and Doppler ultrasound images of the abdomen were obtained. COMPARISON: CT, 11/19/2020 FINDINGS: Bowel gas obscures visualization of the pancreas. The visualized portions of the pancreas a re unremarkable. The liver is normal with normal echogenicity and echotexture. No surface nodularity. Normal hepatopetal flow in the main portal vein. The gallbladder is normal with no abnormal wall thi ckening, pericholecystic fluid or stones. The normal common bile duct measures 4 mm. There was no son ographic Mckay sign. The visualized portions of the aorta and inferior vena cava are normal. The right kidney measures 11.6 x 4.5 x 4.9 cm. The left kidney measures 12.5 x 5.3 x 5.4 cm. The kidn eys demonstrate normal parenchymal echogenicity. There is no hydronephrosis. The spleen is normal in appearance and measures 11.6 cm. IMPRESSION: 1. No sonographic correlate for the patient's symptoms. Reviewed, dictated and finalized at location A. FICIAL TEETH INSPECTOR
== END 2021-03-31 08:49 | disposition home or self-care (01) ==
PROVIDERS: PCP Family Medicine; Visit Provider Physician Assistant
DX: R10.9 Unspecified abdominal pain (principal)
CPT/HCPCS: 76700

== ENCOUNTER 2021-04-05 14:13 | Outpatient (CLI) | payer MEDICARE, SELFPAY ==
--- NOTE | ~2021-04-05 | XR_ITS ---
XR chest 2V 04/05/2021 14:48 Indication: Follow-up pneumonia. Procedure: 2 view chest Comparison: 03/13/2021 Findings: Persistent bibasilar airspace disease, consistent with pneumonia. Small pleural effusions, left greater than right. Cardiomegaly. No pneumothorax. No acute osseous abnormality. Impression: 1: Persistent bibasilar airspace disease, consistent with pneumonia. Reviewed, dictated and finalized at location B. ARY TEACHING ASSISTANT Impression: 1: Persistent bibasilar airspace disease, consistent with pneumonia.
== END 2021-04-05 14:14 | disposition home or self-care (01) ==
LOC: CHSIMG 14:15
PROVIDERS: PCP Family Medicine; Visit Provider Physician Assistant
DX: J18.9 Pneumonia, unspecified organism (principal)
CPT/HCPCS: 71046

== ENCOUNTER 2021-04-08 09:55 | Outpatient (CLI) | payer MEDICARE, SELFPAY ==
--- NOTE | ~2021-04-08 | CT_ITS ---
EXAMINATION: CT diagnostic chest wo con DATE: 04/08/2021 10:09 INDICATION: pnuemonia FOLLOW UP,MIDSTERNAL CP AND SOB X2MO TECHNIQUE: Computed tomography (CT) of the chest was performed without intravenous contrast. Addition al 3D reconstructions utilizing coronal maximum intensity projection (MIP) were performed. Automated exposure control and iterative reconstruction technique were employed. The dose-length product was 80 0.73 mGy-cm. COMPARISON: 03/13/2021 FINDINGS: Small left and tiny right posterior layering pleural effusions. Discoid atelectasis in the lingula, r ight middle and right lower lobes. No pneumonia, pulmonary edema or pneumothorax. Heart size is siena l. Increasing now moderate pericardial effusion with suggestion of some thickening of the overlying p ericardium suspicious for pericarditis. Thoracic aorta is normal in caliber. Multiple likely reactive small mediastinal lymph nodes more notable for number than size. Mild lower thoracic spondylosis. IMPRESSION: 1. Increasing moderate-sized pericardial effusion with suggestion of some pericardial thickening susp icious for pericarditis. 2. Small left and tiny right pleural effusions with discoid atelectasis at the bilateral lower lung z ones. Reviewed, dictated and finalized at location A. GENCY MANAGEMENT SYSTEM DIRECTOR IMPRESSION: 1. Increasing moderate-sized pericardial effusion with suggestion of some peric ardial thickening suspicious for pericarditis. 2. Small left and tiny right pleural effusions with discoid atelectasis at the bilateral lower lung zones.
== END 2021-04-08 09:56 | disposition home or self-care (01) ==
LOC: CHSIMG 09:56
PROVIDERS: PCP Family Medicine; Visit Provider Physician Assistant
DX: J18.9 Pneumonia, unspecified organism (principal)
CPT/HCPCS: 71250

== ENCOUNTER 2022-05-18 11:03 | Emergency (ER) | payer MEDICARE, SELFPAY ==
--- NOTE | ~2022-05-18 | XR_ITS ---
EXAMINATION: XR shoulder LT min 2V INDICATION: Left shoulder pain TECHNIQUE: Four views of the left shoulder are submitted. COMPARISON: None FINDINGS: Normal alignment. No fracture. There is mild osteoarthritis of the acromioclavicular and gl enohumeral joints. Soft tissues are unremarkable. IMPRESSION: 1. No acute osseous abnormality. Reviewed, dictated and finalized at location L.
--- NOTE | ~2022-05-18 | XR_ITS ---
EXAMINATION:XR_CERV2-3V_CR DATE: 05/18/2022 12:08 INDICATION: Left neck pain TECHNIQUE: AP, lateral, lateral swimmers and odontoid views of the cervical spine are provided. COMPARISON: None FINDINGS: There is straightening of the cervical spine which can be positional or due to muscular spa sm. Alignment is normal. The odontoid process is intact. No fracture is identified. The vertebral bod y heights are maintained. There is mild loss of intervertebral disc space height at C5-6. There is mu ltilevel moderate facet and uncovertebral joint osteoarthritis. Prevertebral soft tissues are normal. IMPRESSION: 1. Mild cervical spondylosis without acute findings. Reviewed, dictated and finalized at location L.
[2022-05-18 11:13] VITALS: BP 138/92; PULSE 66; RESP 18; TEMP 36.6; O2SAT 99
[2022-05-18] MEDS: KETOROLAC (*BKC) 60 MG/2 ML VIAL IM (11:36)
--- NOTE | 2022-05-18 12:20 | ED.UPPEXIN ---
HPI - Extremity Injury (Upper) General Chief Complaint: Extremity Injury, Upper Stated Complaint: left shoulder pain fell on sunday Time Seen by Provider: 05/18/22 11:07 Source: patient Mode of arrival: ambulatory Limitations: no limitations History of Present Illness HPI narrative: this is a 56-year-old female with some left shoulder and neck pain after she fell on Sunday on all stretched left arm causing pain in her shoulder and neck area has pain that she states about a 10/10 this occurred on Sunday visit got worse today has decreased range of motion secondary to pain, with no numbness or tingling in her left arm no other injuries. complaint: injury to: left Onset (ago): day(s) Other Extremity Injury: Left: shoulder ( pain and tenderness) Severity: moderate Severity scale (1-10): 10 Relieving factors: immobilization Exacerbating factors: movement of extremity Related Data Home Medications Medication Instructions Recorded Confirmed sertraline 100 mg tablet 100 mg PO DAILY 01/07/19 05/18/22 sumatriptan succinate 50 mg tablet 50 mg PO ONCE PRN Headache 01/07/19 05/18/22 (Imitrex) atorvastatin 80 mg tablet 80 mg PO DAILY 05/18/22 05/18/22 sucralfate 1 gram tablet 1 mg PO QID 05/18/22 05/18/22 Allergies Allergy/AdvReac Type Severity Reaction Status Date / Time No Known Allergies Allergy Verified 05/18/22 11:27 Review of Systems Review of Systems: All systems reviewed & are unremarkable except as noted in HPI and below PMFSH Past Medical History Medical History Abscess Calculus of kidney Chest pain Hyperlipidemia Migraine headache Morbid obesity Social History Social History Social History: nonsmoker Exam Const: General: healthy appearing, no acute distress and alert Limitations: no limitations HENMT: Head: normal to inspection Eyes: Conjunctivae: conjunctivae normal Neck: Neck: normal visual inspection and no lymphadenopathy Chest: Chest palpation & inspection: normal inspection of the chest Resp: Effort & Inspection: normal respiratory effort Auscultation: clear to auscultation bilaterally GI: GI Palp: Yes Soft to palpation Skin: General skin exam: normal color Rashes: no rashes Wounds: no wounds Neuro: General: patient oriented x3 Cranial nerves: Yes Nystagmus not present Extrem: General: normal to inspection Other: Pain with palpation in the neck and shoulder region with palpation has reduced range of motion with no numbness or tingling. Psych: Mental Status: mental status grossly normal Course Course Emergency Course: Patient read a received a dose of IM Toradol say Sir plane is mildly improved, reviewed x-rays with patient which showed no acute abnormalities no fractures. Vital Signs Vital signs: Vital Signs Temperature 36.6 C 05/18/22 11:13 Pulse Rate 66 05/18/22 11:13 Respiratory Rate 18 05/18/22 11:13 Blood Pressure 138/92 H 05/18/22 11:13 Pulse Oximetry 99 05/18/22 11:13 Oxygen Delivery Room Air 05/18/22 11:13 Temperature 36.6 C 05/18/22 11:13 Pulse Rate 66 05/18/22 11:13 Respiratory Rate 18 05/18/22 11:13 Blood Pressure 138/92 H 05/18/22 11:13 Pulse Oximetry 99 05/18/22 11:13 Oxygen Delivery Room Air 05/18/22 11:13 Critical Care Time Critical Care Time Critical Care Time: No Discharge Plan Discharge Clinical Impression: Sprain of left shoulder Qualifiers: Encounter type: initial encounter Shoulder sprain type: unspecified sprain Qualified Code(s): S43.402A - Unspecified sprain of left shoulder joint, initial encounter Neck sprain Qualifiers: Encounter type: initial encounter Qualified Code(s): S13.9XXA - Sprain of joints and ligaments of unspecified parts of neck, initial encounter Patient Disposition: Home, Self-Care Condition: Stable Instructions: Antibiotic Form, Musculoskelet
[2022-05-18 12:42] VITALS: BP 134/85; PULSE 63; RESP 18; TEMP 36.7; O2SAT 96
--- NOTE | 2022-05-18 12:45 | PC.NURSE ---
On 05/18/22, the student, [[email or web address] [email or web address] ], provided care and completed [facility] documentation on this patient. I have reviewed the student's documentation and agree with the findings.
== END 2022-05-18 12:45 | disposition home or self-care (01) ==
PROVIDERS: Emergency Provider Emergency Medicine; PCP Family Medicine
DX: S43.402A Unspecified sprain of left shoulder joint, initial encounter (principal); S13.9XXA Sprain of joints and ligaments of unspecified parts of neck, initial encounter; E78.5 Hyperlipidemia, unspecified; W19.XXXA Unspecified fall, initial encounter
CPT/HCPCS: 72040; 73030; 96372; 99283; J1885

== ENCOUNTER 2022-06-21 12:09 | Outpatient (CLI) | payer MEDICARE, SELFPAY ==
--- NOTE | ~2022-06-21 | MM_ITS ---
EXAMINATION: MM screening uli BI w edilma HISTORY: Screening mammogram TECHNIQUE: Craniocaudal and mediolateral oblique 3-D tomosynthesis images were obtained and synthetic 2-D images were generated. CAD analysis was submitted and interpreted. COMPARISON: No prior mammogram is available for comparison at this institution. BREAST PARENCHYMAL COMPOSITION: The breasts are almost entirely fatty. FINDINGS: No suspicious mass, calcification, or architectural distortion are identified in either fe ast to suggest malignancy. There has been no suspicious interval change. IMPRESSION: 1. No mammographic evidence of malignancy. 2. Recommend routine screening mammography in one year. BI-RADS Category 1: Negative Reviewed, dictated and finalized at location A.
== END 2022-06-21 12:10 | disposition home or self-care (01) ==
LOC: CHSIMG 12:10
PROVIDERS: PCP Family Medicine; Visit Provider Family Medicine
DX: Z12.31 Encounter for screening mammogram for malignant neoplasm of breast (principal)
CPT/HCPCS: 77063; 77067

== ENCOUNTER 2023-04-19 10:56 | Outpatient (CLI) | payer MEDICARE, SELFPAY ==
[2023-04-19 11:10] LABS: Basophils Absolute Auto 0.03 K/mm3 (0.00-0.10); Basophils Percent Auto 0.5 % (0.0-1.0); Eosinophils Absolute Auto 0.13 K/mm3 (0.02-0.50); Eosinophils Percent Auto 2.2 % (1.0-6.0); Hematocrit 45.2 % (35.0-49.0); Hemoglobin 15.2 g/dL (12.0-15.0); Immature Granulocyte Absolute 0.03 K/mm3 (0.00-0.00); Immature Granulocyte Percent A 0.5 % (0.0-0.0); Lymphocytes Absolute Auto 1.21 K/mm3 (1.10-4.50); Lymphocytes Percent Auto 20.7 % (18.0-42.0); Mean Corpuscular HGB Conc 33.6 g/dL (32.0-36.0); Mean Corpuscular Hemoglobin 33.5 pg (27.0-31.0); Mean Corpuscular Volume 99.6 fL (78.0-102.0); Mean Platelet Volume 8.3 fl (9.2-11.8); Monocytes Absolute Auto 0.43 K/mm3 (0.10-0.90); Monocytes Percent Auto 7.4 % (2.0-11.0); Neutrophils Percent Auto 68.7 % (50.0-70.0); Platelet Count Result 258 K/mm3 (150-420); Red Blood Count 4.54 M/mm3 (4.20-5.40); Red Cell Distribution Width 12.2 % (11.6-14.4); White Blood Count 5.8 K/mm3 (4.8-10.8)
[2023-04-19 12:35] LABS: Alanine Aminotransferase 31 U/L (14-59); Albumin Level 3.7 g/dL (3.4-5.0); Alkaline Phosphatase 110 U/L (46-116); Anion Gap 9 mmol/L (8-16); Aspartate Amino Transferase 21 U/L (15-37); Bilirubin,Total 0.6 mg/dL (0.00-1.00); Blood Urea Nitrogen 17 mg/dL (7-18); Carbon Dioxide 29 mmol/L (21-32); Chloride 103 mmol/L (98-108); Cholesterol 181 mg/dL (0-200); Estimated Glomerular Filt Rate > 60; Glucose 90 mg/dL (70-99); HDL Direct 49 mg/dL (40-60); LDL Cholesterol Calculated 102 mg/dL (<130); Osmolality Calculated 293 mOsm/kg (285-295); Potassium 4.2 mmol/L (3.5-5.1); Sodium 141 mmol/L (136-145); Total Protein 7.7 g/dL (6.4-8.2); Triglycerides 152 mg/dL (0-150)
[2023-04-19 12:42] LABS: Thyroid Stimulating Hormone Reflex 12.86 u/IU/mL (0.36-3.74)
[2023-04-19 12:43] LABS: Free T4 Free Thyroxine Reflex 0.61 ng/dL (0.76-1.46)
== END 2023-04-19 10:57 | disposition home or self-care (01) ==
LOC: CHSLAB 10:59
PROVIDERS: PCP Family Medicine; Visit Provider Family Medicine
DX: E03.9 Hypothyroidism, unspecified (principal); F32.9 Major depressive disorder, single episode, unspecified
CPT/HCPCS: 36415; 80053; 80061; 84439; 84443; 85025

== ENCOUNTER 2023-04-27 09:49 | Emergency (ER) | payer MEDICARE, SELFPAY ==
--- NOTE | ~2023-04-27 | XR_ITS ---
EXAMINATION: XR chest 2V DATE: 04/27/2023 INDICATION: . Respiratory tract infection. Sore throat and cough TECHNIQUE: PA and lateral views of the chest were obtained. COMPARISON: None FINDINGS: The lungs are clear with no focal airspace opacities, pulmonary edema, pleural effusion or pneumothor ax. The cardiomediastinal silhouette is normal. Mild thoracic spondylosis. IMPRESSION: 1. No acute cardiopulmonary disease. Reviewed, dictated and finalized at location B.
--- NOTE | 2023-04-27 09:50 | ED.URI ---
HPI - URI/Sore Throat General Chief Complaint: Upper Respiratory Infection Stated Complaint: sore throat/cough Time Seen by Provider: 04/27/23 09:50 History of Present Illness HPI Narrative: Patient is a 57 year old male with history of HLD, Depression here with flu like symptoms. Patient notes that her symptoms began about 3 days ago. She initially experienced some nasal congestion and pressure, along with a sore throat and she suspected she had a sinus infection. She then began having a severe cough, continued nasal congestion and some associated chest pain. Chest pain is diffuse, seems to worsen with coughing. She additionally notes some epigastric abdominal pain which occurs with coughing. No diarrhea. No fever or chills. No known sick contacts. No prior cardiac history. No leg swelling, calf pain. Non smoker. No history of COPD/asthma. Related Data Home Medications Medication Instructions Recorded Confirmed sumatriptan succinate 50 mg tablet 50 mg PO ONCE PRN Headache 01/07/19 05/18/22 (Imitrex) atorvastatin 80 mg tablet 80 mg PO DAILY 05/18/22 05/18/22 bupropion HCl 150 mg 24 hr tablet, 150 mg PO QAM 04/19/23 extended release famotidine 40 mg tablet 40 mg PO DAILY 04/19/23 Allergies Allergy/AdvReac Type Severity Reaction Status Date / Time No Known Allergies Allergy Verified 04/19/23 07:31 Review of Systems Review of Systems: All systems reviewed & are unremarkable except as noted in HPI and below PMFSH Past Medical History Medical History (Updated 04/27/23 @ 11:39 by Lashonda Wang MD) Abscess Calculus of kidney Chest pain Hyperlipidemia Migraine headache Morbid obesity Family History Family History (Updated 04/19/23 @ 10:15 by Anastasiya Pickard) Mother Carcinoma of colon Social History Social History (Updated 04/19/23 @ 10:15 by Anastasiya Pickard) Social History: nonsmoker Smoking status: Never smoker Alcohol intake: never Substance use: never Exam Narrative: GENERAL: Well-appearing, well-nourished, and in no acute distress. HEAD: Normocephalic, atraumatic. EYES: PERRLA and EOMI. ENT: Nares clear. Mucous membranes moist. Mild pharyngeal erythema, uvula midline, no tonsillar swelling or exudate. NECK: Supple. CHEST: Faint bilateral wheeze. Coughing during exam. No respiratory distress. HEART: Regular rate and rhythm. Normal peripheral pulses. ABDOMEN: Soft, nontender, no rebound or guarding, nondistended. EXTREMITIES: Normal range of motion. No lower extremity edema, no calf tenderness. SKIN: Warm, dry, no rash. NEURO: No focal deficits. Alert and oriented x3. PSYCH: Normal mood and affect. Course Course Emergency Course: Chart review performed. Patient here for flu like symptoms x 3 days. PCP note reviewed from 04/19/23. History of HLD, migraines, morbid obesity, depression. Patient seen and evaluated, non toxic appearing. Suspect upper respiratory infection due to viral illness however will do CXR to evaluate for possible pneumonia given excessive cough. She does endorse some associated chest pain, suspect this is likely musculoskeletal in nature due to excessive coughing however given her age and risk factors will do screening cardiac workup including troponin, EKG. Basic lab work has been ordered. Patient agreeable to workup and plan. Lab work and imaging reviewed. No leukocytosis, CMP grossly within normal limits. Troponin negative. Lipase normal. COVID, influenza, RSV, strep negative. CXR negative. Did trial of duoneb, patient notes improvement of cough and breathing. Will give prescription for albuterol inhaler to use during her acute illness for bronchospasm. The results of pertinent diagnostic studies and exam findings were discussed. The patient?s provisional diagnosis and plan of care were discussed with the patient and present family. The patient and/or present family expressed understanding of the diagnosis and plan. The nurse was instructed to provide writte
[2023-04-27 09:53] VITALS: BP 139/72; PULSE 87; RESP 20; TEMP 36.6; O2SAT 100
[2023-04-27 09:57] VITALS: O2SAT 97
--- NOTE | 2023-04-27 09:57 | ECG_ITS ---
Measurements Intervals [place] Rate: 67 P: 29 WV: 174 QRS: 20 QRSD: 84 T: 95 QT: 390 QTc: 412 Interpretive Statements SINUS RHYTHM LOW QRS VOLTAGE IN PRECORDIAL LEADS MINIMAL Q WAVES- INFERIOR LEADS BORDERLINE ST-T WAVE ABNORMALITY- DIFFUSE LEADS BORDERLINE ECG COMPARED TO ECG 03/13/2021 12:39:25 NO SIGNIFICANT CHANGES Electronically Signed On 04-27-2023 11:12:32 CDT by Robe Da Silva D.O.
[2023-04-27] MEDS: ACETAMINOPHEN 500 MG TABLET 1000 MG PO (10:01)
[2023-04-27 10:17] LABS: Basophils Absolute Auto 0.05 K/mm3 (0.00-0.10); Basophils Percent Auto 0.7 % (0.0-1.0); Eosinophils Absolute Auto 0.33 K/mm3 (0.02-0.50); Eosinophils Percent Auto 4.5 % (1.0-6.0); Hematocrit 42.1 % (35.0-49.0); Hemoglobin 14.1 g/dL (12.0-15.0); Immature Granulocyte Absolute 0.05 K/mm3 (0.00-0.00); Immature Granulocyte Percent A 0.7 % (0.0-0.0); Lymphocytes Absolute Auto 1.59 K/mm3 (1.10-4.50); Lymphocytes Percent Auto 21.5 % (18.0-42.0); Mean Corpuscular HGB Conc 33.5 g/dL (32-36); Mean Corpuscular Hemoglobin 34.1 pg (27.0-31.0); Mean Corpuscular Volume 101.7 fL (78.0-102.0); Mean Platelet Volume 8.4 fl (9.2-11.8); Monocytes Percent Auto 6.8 % (2.0-11.0); Neutrophils Absolute Auto 4.88 K/mm3 (1.70-7.20); Neutrophils Percent Auto 65.8 % (50.0-70.0); Platelet Count Result 256 K/mm3 (150-420); Red Blood Count 4.14 M/mm3 (4.20-5.40); Red Cell Distribution Width 12.4 % (11.6-14.4); White Blood Count 7.4 K/mm3 (4.8-10.8)
[2023-04-27 10:27] LABS: Strep Group A RT-PCR NOT DETECTED (Negative)
[2023-04-27 10:33] LABS: SARS-CoV-2 RNA PCR Negative (Negative)
[2023-04-27 10:39] LABS: Alanine Aminotransferase 28 U/L (14-59); Albumin Level 3.5 g/dL (3.4-5.0); Alkaline Phosphatase 107 U/L (46-116); Anion Gap 4 mmol/L (8-16); Aspartate Amino Transferase 21 U/L (15-37); Bilirubin,Total 0.6 mg/dL (0.00-1.00); Blood Urea Nitrogen 12 mg/dL (7-18); Calcium 8.6 mg/dL (8.5-10.1); Carbon Dioxide 33 mmol/L (21-32); Chloride 104 mmol/L (98-108); Estimated CRCL calculation 98 ml/min; Estimated Glomerular Filt Rate > 60; Glucose 105 mg/dL (70-99); NT Pro B Type Natriuretic Pept 53 pg/mL (0-125); Osmolality Calculated 291 mOsm/kg (285-295); Potassium 4.5 mmol/L (3.5-5.1); Sodium 141 mmol/L (136-145); Total Protein 7.5 g/dL (6.4-8.2); Troponin I 4.9 ng/L (0.00-60.4)
[2023-04-27 10:40] LABS: Influenza A QL RT-PCR Negative (Negative); Influenza B QL RT-PCR Negative (Negative); RSV RNA, RT-PCR Negative (Negative)
[2023-04-27 10:41] LABS: Lipase 36 U/L (16-77)
[2023-04-27 11:13] VITALS: PULSE 80; RESP 20; O2SAT 96
[2023-04-27] MEDS: IPRATROPIUM 0.5 MG/ALBUTEROL SULFATE 2.5 MG AMPUL.NEB 3 ML INHALATION (11:14)
[2023-04-27 11:20] VITALS: PULSE 73; RESP 20; O2SAT 99
[2023-04-27 11:46] VITALS: BP 130/78; PULSE 84; RESP 19; O2SAT 98
== END 2023-04-27 11:58 | disposition home or self-care (01) ==
PROVIDERS: Emergency Provider Student in an Organized Health Care Education/Training Program; PCP Family Medicine
DX: B34.9 Viral infection, unspecified (principal); J40 Bronchitis, not specified as acute or chronic; R07.89 Other chest pain; E78.5 Hyperlipidemia, unspecified; Z20.822 Contact with and (suspected) exposure to COVID-19
CPT/HCPCS: 36415; 71046; 80053; 83690; 83880; 84484; 85025; 87637; 87651; 93005; 94640; 99283

== ENCOUNTER 2023-11-15 08:50 | Outpatient (CLI) | payer OTHER, SELFPAY ==
--- NOTE | 2023-11-17 16:51 | WPDPFTINT ---
PFT Procedure Performed PFT Procedure Performed Spirometry with Pre/Post Bronchodilator Plethysmography (Lung Vol) Diffusing Cap (DLCO) Flow Vol Loop PFT Interpretation DOS: 11/15/2023 REQUESTING: Jacob Causey DO REASON FOR TESTING: Dyspnea PULMONARY FUNCTION TESTS Results are reliable and reproducible. Spirometry: The pre-bronchodilator FEV1 is 2.40 L, 106%. The pre-bronchodilator FVC is 2.92 L, 105%. The FEV1/FVC ratio is 82%. After bronchodilator, the FEV1 is 2.48 L, 110%, +3%. After bronchodilator, the 2.90 L, 105%, unchanged. The FEV1/FVC ratio is 86%. Lung volumes: The total lung capacity is 4.80, 106%. The residual volume is 1.87 L, 112%. The RV/TLC is 39%. Airway resistance is not elevated. Diffusion: DLCO is 20.9, 72%, minimally decreased. The DLCO/VA is 5.11, 132%.. Flow volume loop: The flow volume loop is normal. IMPRESSION: Normal spirometry without response to bronchodilator, normal lung volumes, normal diffusion. No prior studies to compare. Alla Kelly MD
== END 2023-11-15 08:51 | disposition home or self-care (01) ==
LOC: CHSCARD 08:52
PROVIDERS: PCP Family Medicine; Visit Provider Family Medicine
DX: R06.00 Dyspnea, unspecified (principal)
CPT/HCPCS: 94060; 94726; 94729

== ENCOUNTER 2024-06-10 17:20 | Emergency (ER) | payer MEDICARE, SELFPAY ==
--- NOTE | 2024-06-10 17:21 | ED.SKABFB ---
HPI - Skin/Abscess/Foreign Bdy General Chief complaint: Skin/Abscess/Foreign Body Stated complaint: knot on head Time Seen by Provider: 06/10/24 17:21 Source: patient Mode of arrival: ambulatory Limitations: no limitations History of Present Illness HPI narrative: Patient is a 58-year-old female with a right anterior scalp lesion that is getting a scab and causing worse pain daily. She has come to the ER due to the increasing pain. complaint: abscess/boil ( Anterior scalp right side) Onset (ago): day(s) ( 3) Location: head Severity: moderate Severity scale (1-10): 5 Quality: aching and sharp Pain Consistency: constant Relieving factors: none Exacerbating factors: none Context: other ( patient is having right scalp pain and redness an came for evaluation.) Associated symptoms: denies other symptoms Treatments prior to arrival: none Related Data Allergies Allergy/AdvReac Type Severity Reaction Status Date / Time No Known Allergies Allergy Verified 06/10/24 17:27 Review of Systems Review of Systems: All systems reviewed & are unremarkable except as noted in HPI and below Constitutional: Constitutional: Reports no additional constitutional complaints Eyes: Eyes: Reports no additional eye complaints ENT: Reports system reviewed and no additional complaints, except as documented Cardiovascular: Cardiovascular: Reports no additional cardiovascular complaints Respiratory: Respiratory: Reports no additional respiratory complaints Gastrointestinal: Gastrointestinal: Reports no additional gastrointestinal complaints Genitourinary: Genitourinary: Reports no additional female genitourinary complaints Musculoskeletal: Musculoskeletal: Reports no additional musculoskeletal complaints Integumentary/Breasts: Skin/Breast: Reports system reviewed and no additional complaints, except as docu Neurologic: Reports system reviewed and no additional complaints, except as documented Psychiatric: Psychiatric: Reports no additional psychiatric complaints Endocrine: Endocrine: Reports no additional endocrine complaints Hematologic/Lymphatic: Hematologic/Lymphatic: Reports no additional hematologic/lymphatic complaints Allergic/Immunologic: Allergic/Immunologic: Reports no additional allergic/immunologic complaints PMFSH Past Medical History Medical History Chest pain Morbid obesity Calculus of kidney Abscess Hyperlipidemia Migraine headache Family History Family History Mother Carcinoma of colon Social History Social History Social History: nonsmoker Smoking status: Never smoker Alcohol intake: never Substance use: never Exam Const: General: healthy appearing Nutritional Appearance: well nourished Orientation/consciousness: patient oriented x3 HENMT: Head: normal to inspection Ears: external ears normal Face/Nose/Sinus: Normal external nose present Eyes: Conjunctivae: conjunctivae normal Pupils: Equal, round and reactive pupils present EOM: EOMs intact bilaterally Neck: Neck: normal visual inspection Chest: Chest palpation & inspection: normal inspection of the chest Resp: Effort & Inspection: normal respiratory effort and not labored Auscultation: clear to auscultation bilaterally and no crackles Cardio: Rate: regular rate Rhythm: regular rhythm Heart sounds: no murmurs GI: Inspection: non-distended GI Palp: Yes Soft to palpation and No Tenderness to palpation present (GI) Auscultation: normal bowel sounds : General: Yes bladder normal to palpation Back/Spine/Pelvis: Back: no CVA tenderness Skin: General skin exam: normal color Rashes: no rashes Wounds: wound noted and wounds noted Other: Right frontal scalp has a small nidus of infection with localized silver dollar shape area with erythema and tenderness and bogginess; the area is very small and does not require incision and drainage at this time Neuro: General: patient oriented x3 Cranial nerves: Yes Nystagmus not present Speech: normal speech Extrem: General: normal to inspection Psych: Mental Status: mental status grossly normal Affect: normal affect Attitude: cooperative Course Vital Signs Vital signs: Vital Signs Temperature 36.6 C 06/10/24 17:23 Pulse Rate 83 06/10/24 17:23 Respiratory Rate 18 06/10/24 17:23 Blood Pressure 122/53 L 06/10/24 17:23 Pulse Oximetry 95 06/10/24 17:23 Oxygen Delivery Room Air 06/10/24 17:23 Temperature 36.6 C 06/10/24 17:23 Pulse Rate 83 06/10/24 17:23 Respiratory Rate 18 06/10/24 17:23 Blood Pressure 122/53 L 06/10/24 17:23 Pulse Oximetry 95 06/10/24 17:23 Oxygen Delivery Room Air 06/10/24 17:23 MDM - Skin/Abscess/Foreign Bdy MDM Narrative Medical decision making narrative: patient is a 58-year-old female with a scalp irritation and knot feeling for the past 3 days. Discharge Plan Discharge Clinical Impression: Abscess of skin Qualifiers: Site of cutaneous abscess: head Qualified Code(s): L02.811 - Cutaneous abscess of head [any part, except face] Patient Disposition: Home Condition: Stable Instructions: Antibiotic Form, Abscess (ED) Additional Instructions: Please see the primary doctor in the next week for follow-up. You may need further procedure done if this area gets worse but at this time antibiotic should take care of the problem. Patient Language: Latvian Prescriptions: New sulfamethoxazole-trimethoprim [Bactrim DS] 800-160 mg tablet 1 tablet PO BID 10 Days Qty: 20 0RF No Action montelukast 10 mg tablet 10 mg PO DAILY Qty: 90 3RF albuterol sulfate 90 mcg/actuation HFA aerosol inhaler 2 puff inhalation QID PRN (Reason: shortness of breath or wheezing) Qty: 6.7 0RF Rx Instructions: Use with spacer. atorvastatin 80 mg tablet See Rx Instructions .ROUTE .COMPLEX Qty: 90 0RF Dose Instruction: TAKE 1 TABLET BY MOUTH EVERY DAY Rx Instructions: TAKE 1 TABLET BY MOUTH EVERY DAY levothyroxine 75 mcg tablet 75 mcg PO DAILY Qty: 90 0RF sertraline 100 mg tablet See Rx Instructions .ROUTE .COMPLEX Qty: 180 0RF Dose Instruction: TAKE 2 TABLETS BY MOUTH EVERY DAY Rx Instructions: TAKE 2 TABLETS BY MOUTH EVERY DAY bupropion HCl 150 mg tablet extended release 24 hr See Rx Instructions .ROUTE .COMPLEX Qty: 90 0RF Dose Instruction: TAKE 1 TABLET BY MOUTH EVERY DAY IN THE MORNING Rx Instructions: TAKE 1 TABLET BY MOUTH EVERY DAY IN THE MORNING famotidine 40 mg tablet See Rx Instructions .ROUTE .COMPLEX Qty: 90 0RF Dose Instruction: TAKE 1 TABLET BY MOUTH EVERY DAY Rx Instructions: TAKE 1 TABLET BY MOUTH EVERY DAY Follow-up/Referrals: Jacob Causey DO [Primary Care Provider] - Time of Disposition: 17:35
[2024-06-10 17:23] VITALS: BP 122/53; PULSE 83; RESP 18; TEMP 36.6; O2SAT 95
--- OUTSIDE RECORDS SUMMARY | 2024-06-10 17:51 | XMS_ITS | Encounter Summary ---
Author Organization [facility] Address [facility] [place] [address] Care Team Providers Care Felt Cutter Name Role Phone Felice, Provider Primary Care Provider Unavaila Sushant Whitfield MD Primary Care Provider Trevin Edwards MD Primary Care Provider Olu Gonzalez Unavailable [phone] Sonam Díaz MD Unavailable Encounter Details Date Type Department Care Team (Late st Contact Info) Description 07/20/2018 Abstract [facility] CONVERSION [address] [place] [address] , Generic Conversion, Social History Tobacco Use Types Packs/Day Years Used Date Smoking Tobacco: Never Assessed Comments Unknown Sex and Gender Information Value Date Recorded Sex Assigned at Not on file Legal Sex Female 1:41 AM CDT Gender Identity Not on file Sexual Orientation Not on file documented as of this encounter Plan of Treatment Not on file documented as of this encounter Visit Diagnoses Not on filedocumented in this encounter Additional Health Concerns Infection Onset Date Last Indicated Resolved Time COVID-19 Rule Out 04/12/2021 04/12/2021 04/12/2021 4:15 PM [employer]IES BR[employer]ER COVID-19 Rule Out 05/21/2021 05/21/2021 05/21/2021 6:53 PM CDT documented as of this encounter Care Teams Felt Cutter Relationship Specialty Start Date End Date None, ProviderMD PCP - General 11/11/19 12/10/19 Sushant Olguin MD [address] [place] [phone] PCP - General FAMILY PRACTICE 12/11/19 04/04/20 Trevin Edwards MD [address] [place] [phone] PCP - General FAMILY PRACTICE 04/05/20 Olu Gonzalez PA [address] [place] [phone] Physician Collection Analyst PHYSICIAN SPECIAL NEEDS TUTOR 04/11/21 Sonam Díaz MD [address] [place] [phone] Consulting Physician CARDIOVASCULAR DISEASE 04/11/21 1 documented as of this encounter
--- OUTSIDE RECORDS SUMMARY | 2024-06-10 17:51 | XMS_ITS | Clinical Summary ---
Author Organization [facility] Address [facility] [place] [address] Care Team Providers Care Joiner Name Role Phone Trevin Ewdards MD Primary Care Provider Olu Nails Unavailable [phone] Allergies No known active allergies Medications atorvastatin 80 MG tablet Take 80 mg by mouth nightly at bedtime. Active SUMAtriptan (IMITREX) 50 MG tablet Take 50 mg by mouth 2 (two) times daily as needed for Migraine. Max of 4 tablets (200 mg) in 24 hours. Active sertraline 100 MG tablet Take 100 mg by mouth daily. Take 2 daily Active famotidine 40 MG tablet Take 40 mg by mouth 2 (two) times daily. Active albuterol (2.5 MG/3ML) 0.083% nebulizer solution Take 3 mLs (2.5 mg total) by nebulization 4 (four) times daily. Disp one box of 25 vials 360 mL 2 Active Active Problems No known active problems Family History Medical History Relation Comments Colon Cancer Mother Relation Status Comments Mother Social History Tobacco Use Types Packs/Day Years Used Date Smoking Tobacco: Former Cigarettes Q uit: 1990 Smokeless Tobacco: Never Alcohol Use Standard Drinks/Week Comments Not Currently 0 (1 standard drink = 0.6 oz pur e alcohol) Comments No Sex and Gender Information Value Date Recorded Sex Assigned at Not on file Legal Sex Female 1:41 AM CDT Gender Identity Not on file Sexual Orientation Not on file Occupation Industry Job Start Date Job End Date Not on file Not on file Not on file Not on file Last Filed Vital Signs Vital Sign Reading Time Taken Comments Blood Pressure 126/58 05/24/2021 8:43 AM CDT Pulse 64 05/24/2021 8:43 AM CDT Temperature 36.2 C (97.2 F) 05/24/2021 8:43 AM CDT Respiratory Rate 20 05/24/2021 8:43 AM CDT Oxygen Saturation 98% 05/24/2021 8:43 AM CDT Inhaled Oxygen Concentration - - Weight 120.2 kg (265 lb) 05/17/2021 1:26 PM CDT Height 157.5 cm (5' 2 ) 05/17/2021 1:26 PM CDT Body Mass Index 48.47 05/17/2021 1:26 PM CDT Plan of Treatment Health Maintenance Due Date Last Done Comments Cervical Cancer Screening Pa p Smear (Age 30 to 64) Every 3 Years 1965 Colorectal Cancer Screening Colonoscopy (10 Years) 1965 Annual Physical 1968 Hepatitis C 10/13/1983 DTaP, Tdap and Td Vaccines ( 1 - Tdap) 1984 Hepatitis B Vaccines (1 of 3 - 19+ 3-dose series) 1984 Cervical Cancer Screening Pa p with HPV Testing (Age 30 to 64) Every 5 Years 10/13/1995 Cervical Cancer Screening with HPV 10/13/1995 Pneumococcal Vaccine: 50+ Ye ars (1 of 1 - PCV) 10/13/2015 Zoster Vaccines (1 of 2) 10/13/2015 Mammogram Screening 11/22/2022 11/22/2020 COVID-19 Vaccine ( - 2023-2 5 season) 2023 Meningococcal B Vaccine Aged Out No l onger eligible based on patient's age to complete this topic Meningococcal Vaccine Aged Out No tae abdi eligible based on patient's age to complete this topic RSV Immunizations Under 20 Months Aged Out No longer eligible based on patient's age to complete this topic Procedures Procedure Name Priority Date/Time Associated Diagnosis Comments MG SCREENING W BIRD ARIANNE DIGI Routine 11/22/2020 3:52 PM CDT Visit for screening mammogram from Last 3 Months or Most Recently Relevant to Health Maintenance Results * MG SCREENING W BIRD ARIANNE DIGI (11/22/2020 3:52 PM CDT) Anatomical Region Laterality Modality Breast Bilateral Mammography 11/22/2020 5:10 PM CDT Impressions 11/22/2020 5:11 PM CDT IMPRESSION: No suspicious change since the previous exams. Recommendation: 1: Routine screening mammogram Bilateral in 1 Year Assessment: ACR BI-RADS Category 2 - Benign. Referred By: OLU NAILS Interpreted By: Yanick Brown MD, 11/22/2020 5:10 PM Narrative 11/22/2020 5:11 PM CDT Examination: Digital screening mammogram with CAD. Clinical history: Asymptomatic patient presents for routine screening. Comparison: 10/25/2016, 06/22/2015, 04/08/2014. Technique: Bilateral digital mammograms. The exam was interpreted with the use of a computer-aided detection (CAD) system. Additional 3-D tomosynthesis images were acquired. Tissue density: The breast tissue contains scattered fibroglandular densities. Findings: The breast tissue contains scattered fibroglandular densities. Benign-appearing calcification noted. No suspicious mass, microcalcification or area of architectural distortion can be identified. From a mammographic standpoint, routine followup in one year would seem adequate. Olu Nails PA MAMMO Final Result from Last 3 Months or Most Recently Relevant to Health Maintenance Insurance MEDICARE MEDICARE Care Teams Joiner Relationship Specialty Start Date End Date Trevin Edwards MD [address] [place] [phone] PCP - General FAMILY PRACTICE 04/05/20 Olu Nails PA [address] [place] [phone] Physician Major Assembly Inspector PHYSICIAN CAREER TECHNICAL COUNSELOR 04/11/21
== END 2024-06-10 17:40 | disposition home or self-care (01) ==
LOC: CHSED 17:44
PROVIDERS: Emergency Provider Emergency Medicine; PCP Family Medicine
DX: L02.811 Cutaneous abscess of head [any part, except face] (principal); E78.5 Hyperlipidemia, unspecified
CPT/HCPCS: 99283

== ENCOUNTER 2024-08-21 21:32 | Emergency (ER) | payer MEDICARE, SELFPAY ==
--- NOTE | ~2024-08-21 | XR_ITS ---
XR wrist LT min 3V Ordering provider: Trae Maguire MD History: . hand and wrist injury/5TH DIGIT AND ULNAR SIDE PAIN . Comparison: None. FINDINGS: BONES: No acute fracture or dislocation. No definite scaphoid fracture. JOINT SPACES: Well maintained. SOFT TISSUES: Normal. IMPRESSION: No acute osseous abnormality left wrist. Reviewed, dictated and finalized at location A.
--- NOTE | ~2024-08-21 | XR_ITS ---
XR hand LT min 3V Ordering provider: Trae Maguire MD History: . Hand and wrist injury/5HT DIGIT AND ULNAR SIDE PAIN . Comparison: None. FINDINGS: BONES: No acute fracture or dislocation. JOINT SPACES: Well maintained. SOFT TISSUES: Unremarkable. IMPRESSION: No acute osseous abnormality left hand. Reviewed, dictated and finalized at location A.
--- NOTE | 2024-08-21 21:33 | ED_ITS ---
HPI - Extremity Injury (Upper) General Chief Complaint: Fall Stated Complaint: upper extremity injury Time Seen by Provider: 08/21/24 21:32 Source: patient Mode of arrival: ambulatory Limitations: no limitations History of Present Illness HPI narrative: this is a 58-year-old female morbidly obese with a history of hypercholesterolemia depression had a fall earlier today around 4 injuring her left hand and wrist with decreased range of motion secondary to pain and swelling with no bruising no numbness or tingling no other injuries noted. complaint: injury to: left Onset (ago): hour(s) Other Extremity Injury: Left: hand ( tenderness) and wrist ( tenderness) Handedness: right Place: outdoors Severity: moderate Severity scale (1-10): 6 Relieving factors: cold therapy Exacerbating factors: immobilization Context: fall Associated symptoms: denies other symptoms Related Data Allergies Allergy/AdvReac Type Severity Reaction Status Date / Time No Known Allergies Allergy Verified 08/21/24 21:38 Review of Systems Review of Systems: All systems reviewed & are unremarkable except as noted in HPI and below PMFSH Past Medical History Medical History Chest pain Morbid obesity Calculus of kidney Abscess Hyperlipidemia Migraine headache Family History Family History Mother Carcinoma of colon Social History Social History Social History: nonsmoker Smoking status: Never smoker Alcohol intake: never Substance use: never Exam Const: General: healthy appearing and no acute distress Nutritional Appearance: well nourished and obese Orientation/consciousness: patient oriented x3 Limitations: no limitations Neck: Neck: normal visual inspection, no lymphadenopathy and no meningeal signs Chest: Chest palpation & inspection: normal inspection of the chest Resp: Effort & Inspection: normal respiratory effort Auscultation: clear to auscultation bilaterally Cardio: Rate: regular rate Rhythm: regular rhythm GI: GI Palp: Yes Soft to palpation Auscultation: normal bowel sounds : General: Yes bladder normal to palpation Skin: General skin exam: normal color Rashes: no rashes Wounds: no wounds Neuro: General: patient oriented x3, moves all extremities, no meningeal signs and no focal motor deficits Extrem: Other: Left hand and wrist pain with movement palpation with a brisk radial pulse on the left Course Course Emergency Course: x-rays performed show no acute fractures, Toradol 60mg IM administered for pain relief. Critical Care Time Critical Care Time Critical Care Time: No Discharge Plan Discharge Clinical Impression: Left wrist sprain Qualifiers: Encounter type: initial encounter Wrist sprain location: other location Qualified Code(s): S63.592A - Other specified sprain of left wrist, initial encounter Patient Disposition: Home Condition: Stable Instructions: Antibiotic Form, Wrist Sprain (ED) Additional Instructions: advised patient to follow-up with primary care physician within next 3 to 5 days take medication as prescribed. Patient Language: Bulgarian Prescriptions: New naproxen 500 mg tablet 500 mg PO BID PRN (Reason: pain) Qty: 14 0RF No Action albuterol sulfate 90 mcg/actuation HFA aerosol inhaler 2 puff inhalation QID PRN (Reason: shortness of breath or wheezing) Qty: 6.7 0RF Rx Instructions: Use with spacer. atorvastatin 80 mg tablet See Rx Instructions .ROUTE .COMPLEX Qty: 90 0RF Dose Instruction: TAKE 1 TABLET BY MOUTH EVERY DAY Rx Instructions: TAKE 1 TABLET BY MOUTH EVERY DAY bupropion HCl 150 mg tablet extended release 24 hr See Rx Instructions .ROUTE .COMPLEX Qty: 90 0RF Dose Instruction: TAKE 1 TABLET BY MOUTH EVERY DAY IN THE MORNING Rx Instructions: TAKE 1 TABLET BY MOUTH EVERY DAY IN THE MORNING famotidine 40 mg tablet See Rx Instructions .ROUTE .COMPLEX Qty: 90 0RF Dose Instruction: TAKE 1 TABLET BY MOUTH EVERY DAY Rx Instructions: TAKE 1 TABLET BY MOUTH EVERY DAY levothyroxine 75 mcg tablet 75 mcg PO DAILY Qty: 90 0RF montelukast 10 mg tablet 10 mg PO DAILY Qty: 90 3RF sertraline 100 mg tablet See Rx Instructions .ROUTE .COMPLEX Qty: 180 0RF Dose Instruction: TAKE 2 TABLETS BY MOUTH EVERY DAY Rx Instructions: TAKE 2 TABLETS BY MOUTH EVERY DAY Follow-up/Referrals: Jacob Causey DO [Primary Care Provider] -
--- OUTSIDE RECORDS SUMMARY | 2024-08-21 21:34 | XMS_ITS | Clinical Summary ---
Author Organization [facility] Address [facility] [place] [address] Care Team Providers Care Windows Deployment Technician Name Role Phone Trevin Edwards MD Primary Care Provider Olu Nails Unavailable [phone] Allergies No known active allergies Medications [...] 1:26 PM CDT Height 157.5 cm (5' 2) 05/17/2021 1:26 PM CDT Body Mass Index [...] Health Maintenance Insurance MEDICARE MEDICARE Care Teams Windows Deployment Technician Relationship Specialty Start Date End Date Trevin Edwards MD [address] [place] [phone] PCP - General FAMILY PRACTICE 04/05/20 Olu Nails PA [address] [place] [phone] Physician Motion Graphics Designer PHYSICIAN DENTAL BILLER 04/11/21
--- OUTSIDE RECORDS SUMMARY | 2024-08-21 21:34 | XMS_ITS | Encounter Summary ---
Author Organization [facility] Address [facility] [place] [address] Care Team Providers Care Bloom Conveyor Operator Name Role Phone Felice, Provider Primary Care Provider Unavaila Sushant Whitfield MD Primary Care Provider Trevin Edwards MD Primary Care Provider Olu Gonzalez Unavailable [phone] Sonam Díaz MD Unavailable Encounter Details Date Type Department Care Team (Late st Contact Info) Description 07/20/2018 Abstract [facility]FL CONVERSION [address] [place] [address] , Generic Conversion, Social History Tobacco Use [...] Rule Out 04/12/2021 04/12/2021 04/12/2021 4:15 PM HAND MIXER COVID-19 Rule Out 05/21/2021 05/21/2021 05/21/2021 6:53 PM CDT documented as of this encounter Care Teams Bloom Conveyor Operator Relationship Specialty Start Date End Date None, ProviderMD PCP - General 11/11/19 12/10/19 Sushant Olguin MD [address] [place] [phone] PCP - General FAMILY PRACTICE 12/11/19 04/04/20 Trevin Edwards MD [address] [place] [phone] PCP - General FAMILY PRACTICE 04/05/20 Olu Gonzalez PA [address] [place] [phone] Physician Academic Physician PHYSICIAN BREAST WORKER 04/11/21 Sonam Díaz MD [address] [place] [phone] Consulting Physician CARDIOVASCULAR DISEASE 04/11/21 1 documented as of this encounter
[2024-08-21 21:38] VITALS: BP 129/78; PULSE 79; RESP 18; TEMP 36.1; O2SAT 96
[2024-08-21] MEDS: KETOROLAC (*BKC) 60 MG/2 ML VIAL IM (21:44)
[2024-08-21 23:18] VITALS: BP 127/77; PULSE 78; RESP 16; O2SAT 97
== END 2024-08-21 23:23 | disposition home or self-care (01) ==
PROVIDERS: Emergency Provider Emergency Medicine; PCP Family Medicine
DX: S63.592A Other specified sprain of left wrist, initial encounter (principal); W19.XXXA Unspecified fall, initial encounter
CPT/HCPCS: 73110; 73130; 96372; 99283; J1885